=== PATIENT | male | born 1960 | race Caucasian/White ===

== ENCOUNTER → 2018-06-19 | Emergency (ER) | payer OTHER ==
[~2018-06-19] VITALS: Ht 175.3 cm; Wt 143.6 kg
[~2018-06-19] MED LIST: ACETAMINOPHEN-1 EAC1 PO; ALBUTEROL2.5 MG/0.5 INH; ALDACTONE25 MG PO; ALLOPURINOL 10100 M1 PO; AMARYL4 MG PO; ATORVASTATIN CA40 MG PO; ATROVENT HFA14 GM INH; AUGMENTIN 500-1 EACH PO; BUMETANIDE 1 MG1 M1 PO; CARDIZEM CD120 MG PO; CARDIZEM CD180 MG PO; CARDIZEM CD240 MG PO; CARTIA XT300 M1 PO; CARVEDILOL12.5 MG PO; CARVEDILOL25 MG PO; CATAPRES0.2 MG PO; CELEXA 20 MG TA20 M1 PO; CELEXA20 MG PO; CLONIDINE HCL0.2 M2 PO; CLONIDINE0.1 PO; COLACE100 MG PO; COREG25 MG PO; DICLOXACILLIN250 M2 PO; DIFLUCAN200 MG PO; DIGOXIN250 MCG PO; DOXYCYCLINE 10100 MG PO; DUONEB 2.5-0.5 M3 ML INH; ELIQUIS5 MG PO; FISH OIL 1,001000 M2 PO; FUROSEMIDE 80 M80 M1 PO; GLIPIZIDE 5 MG T5 MG PO; GLIPIZIDE ER5 MG PO; GLUCOPHAGE500 MG PO; INSPRA25 MG PO; IPRAT-ALBUT 0.5-3 ML INH; KLOR-CON 1010 MEQ PO; LANOXIN 0.120.125 M1 PO; LASIX 40 MG TAB40 M1 PO; LASIX 40 MG TAB40 M2 PO; LASIX 80 MG TAB80 MG PO; LEVALBUTER1.25 MG/0. INH; LEVAQUIN 500 M500 M1 PO; LEVAQUIN 500 M500 M2 PO; LEVEMIR SUBQ; LISINOPRIL2.5 MG PO; LISINOPRIL20 MG PO; METFORMIN HCL500 MG PO; MINOXIDIL10 MG PO; MINOXIDIL2.5 MG PO; MIRALAX17 GM PO; MIRALAX255 GM PO; MUCINEX TA600 MG/TA1 PO; NOHOMEMEDICATIONS; NORCO 5-325 TA1 EACH PO; NOVOLOG100 UNIT/1 SUBQ; OMEGA-31000 M1 PO; POTASSIUM20 PO; PRADAXA150 MG PO; PRAVACHOL40 MG PO; PREDNISONE 10 M10 MG PO; PREDNISONE 20 M20 M1 PO; PROTONIX40 M1 PO; PROTONIX40 M4 PO; SIMVASTATIN40 MG PO; SINGULAIR 10 MG10 M1; SINGULAIR 10 MG10 M1 PO; SORINE 80 MG TA80 M1 PO; SOTALOL80 MG; SPIRONOLACTONE25 M1 PO; VENTOLIN HFA 1818 GM INH; ZAROXOLYN 2.5M2.5 M1 PO; ZAROXOLYN 5MG TA5 M1; ZAROXOLYN 5MG TA5 MG PO; ZOCOR20 MG PO
[2018-06-19 15:18] LABS: HEMATOCRIT 36.3 % (42.0-52.0); HEMOGLOBIN 11.9 gm/dL (14.0-18.0); MCH 30.2 pg (26.0-34.0); MCHC 32.8 g/dL (28.0-37.0); MPV 9.1 fl. (7.2-11.1); NUCLEATED RBCS 0 /100WBC; PLATELET COUNT* 140 thou/uL (150-400); RBC 3.95 mil/uL (4.50-6.00); RDW-CV 14.5 % (10.5-14.5); WBC 8.3 thou/uL (4.0-11.0)
[2018-06-19 15:49] LABS: ABSOLUTE EOSINOPHILS 0.1 thou/uL (0.0-0.7); ABSOLUTE MONOCYTES 0.5 thou/uL (0.0-1.2); ABSOLUTE NEUTROPHILS 6.7 thou/uL (1.6-8.1); PLATELET ESTIMATE DECREASED
[2018-06-19 16:19] VITALS: BP 124/69
== END ==
LOC: M.ERS 12:48
PROVIDERS: Nurse Practitioner Family
DX: S81.811A Laceration without foreign body, right lower leg, initial encounter (principal); E11.9 Type 2 diabetes mellitus without complications; G47.30 Sleep apnea, unspecified; I48.91 Unspecified atrial fibrillation; I50.9 Heart failure, unspecified; Z77.22 Contact with and (suspected) exposure to environmental tobacco smoke (acute) (chronic); Z88.1 Allergy status to other antibiotic agents; Z79.4 Long term (current) use of insulin; W22.8XXA Striking against or struck by other objects, initial encounter; Y93.89 Activity, other specified; Y92.89 Other specified places as the place of occurrence of the external cause; Y99.8 Other external cause status

== ENCOUNTER 2018-07-04 20:50 | Inpatient (IN) | payer OTHER ==
[~2018-07-04] VITALS: Ht 175.3 cm; Wt 148.8 kg
[~2018-07-04 20:50] MED LIST changes: -AMARYL4 MG PO; -ATORVASTATIN CA40 MG PO; -AUGMENTIN 500-1 EACH PO; -DICLOXACILLIN250 M2 PO; -DIFLUCAN200 MG PO; -DIGOXIN250 MCG PO; -INSPRA25 MG PO; -IPRAT-ALBUT 0.5-3 ML INH; -PROTONIX40 M1 PO; -SPIRONOLACTONE25 M1 PO
[2018-07-04 20:59] VITALS: BP 148/91
[2018-07-04] MEDS ORDERED: ATORVASTATIN CA40 MG PO (21:08)
[2018-07-04] MEDS ORDERED: AMARYL4 MG PO (21:09)
[2018-07-04] MEDS ORDERED: PREDNISONE 10 M10 MG PO (21:09)
[2018-07-04] MEDS ORDERED: SPIRONOLACTONE25 M1 PO (21:10)
[2018-07-04] MEDS ORDERED: LASIX 40 MG TAB40 M2 PO (21:10)
[2018-07-04] MEDS ORDERED: PROTONIX40 M1 PO (21:10)
[2018-07-04] MEDS ORDERED: CARDIZEM CD120 MG PO (21:11)
[2018-07-04 22:17] LABS: ABSOLUTE EOSINOPHILS 0.1 thou/uL (0.0-0.7); ABSOLUTE LYMPHOCYTES 0.8 thou/uL (0.8-5.3); ABSOLUTE MONOCYTES 0.7 thou/uL (0.0-1.2); ABSOLUTE NEUTROPHILS 5.4 thou/uL (1.6-8.1); BASOPHILS 0.4 %; EOSINOPHILS 1.2 %; HEMATOCRIT 30.9 % (42.0-52.0); HEMOGLOBIN 10.3 gm/dL (14.0-18.0); LYMPHOCYTES 11.4 %; MCH 30.5 pg (26.0-34.0); MCHC 33.2 g/dL (28.0-37.0); MCV 91.8 fL (80.0-100.0); MONOCYTES 9.4 %; MPV 8.1 fl. (7.2-11.1); NUCLEATED RBCS 0 /100WBC; PLATELET COUNT* 181 thou/uL (150-400); POLYS 77.6 %; RBC 3.37 mil/uL (4.50-6.00); RDW-CV 15.2 % (10.5-14.5); WBC 6.9 thou/uL (4.0-11.0)
[2018-07-04 22:24] LABS: ANION GAP < 0 mmol/L (7-16); BUN 29 mg/dL (7-18); CALCIUM 9.2 mg/dL (8.5-10.1); CHLORIDE 101 mmol/L (98-107); CO2 39 mmol/L (21-32); CREATININE 1.8 mg/dL (0.6-1.3); GLUCOSE 139 mg/dL (70-99); SODIUM 139 mmol/L (136-145)
[2018-07-04 22:25] LABS: ALBUMIN 3.1 g/dL (3.4-5.0); ALKALINE PHOSPHATASE 80 U/L (46-116); SGOT 18 U/L (15-37); SGPT 22 U/L (30-65); TOTAL BILIRUBIN 0.4 mg/dL (<0.1-1.0)
[2018-07-05] VITALS (7 sets, daily range): BP systolic 118–158; BP diastolic 66–90
[2018-07-06] VITALS: BP 120/69
[2018-07-06 05:27] LABS: HEMATOCRIT 30.6 % (42.0-52.0); MCH 30.2 pg (26.0-34.0); MCHC 32.8 g/dL (28.0-37.0); MCV 92.3 fL (80.0-100.0); MPV 8.6 fl. (7.2-11.1); RBC 3.31 mil/uL (4.50-6.00); RDW-CV 14.9 % (10.5-14.5); WBC 6.9 thou/uL (4.0-11.0)
[2018-07-06 05:43] LABS: CALCIUM 8.9 mg/dL (8.5-10.1); CREATININE 1.4 mg/dL (0.6-1.3); MAGNESIUM 2.1 mg/dL (1.8-2.4); POTASSIUM 4.3 mmol/L (3.5-5.1)
[2018-07-06 07:30] VITALS: BP 136/92
--- NOTE | 2018-07-06 07:53 | CON ---
[address] [address] CONSULTATION Name: KARL LAO SR Room: [address] IN M.R.#: [id number] Admission: 07/04/18 Attend Phys: Stephen Gomez MD Discharge: Date of : 56 Report #: [id number] THIS REPORT FOR: //name// CC: Abelardo Gomez DATE OF SERVICE: 07/05/2018 INFECTIOUS DISEASE CONSULTATION REASON FOR EVALUATION: Right lower extremity infected hematoma, site of fairly significant trauma. HISTORY OF PRESENT ILLNESS: Chart reviewed, the patient examined. This is a 57-year-old with diabetes mellitus who sustained injury as a result of a sawhorse falling on his leg roughly 2 weeks ago. He was evaluated. At that point, he had a, described as a blood blister. Eventually, it denuded and became quite inflamed. He has had moderate pain since that time, with bloody drainage from the coagulated hematoma. He denies significant pulmonary or gastrointestinal-related complaints. Blood sugars have been mildly elevated relative to his baseline. He was seen in the Emergency Room, subsequently admitted and placed on empiric therapy with combination therapy with piperacillin and vancomycin. ALLERGIES: ALLERGIC TO ADHESIVE TAPE. CURRENT MEDICATIONS: Include atorvastatin, montelukast, insulin, vancomycin, ipratropium and albuterol inhaler, p.r.n. analgesics, antiemetics, prednisone, glimepiride, lisinopril, allopurinol, apixaban, citalopram and Zosyn. PAST MEDICAL HISTORY: Diabetes mellitus, hypertension, obstructive sleep apnea, hypercholesterolemia, cardiomyopathy with history of congestive heart failure and atrial fibrillation. SOCIAL HISTORY: Former smoker. No ethanol. FAMILY HISTORY: Noncontributory. REVIEW OF SYSTEMS: As above. PHYSICAL EXAMINATION: GENERAL: He appears mildly distressed. He is not encephalopathic, reasonably nourished. VITAL SIGNS: Temperature 97.7, pulse 92, respirations 16 and blood pressure 118/70. SKIN: Warm, [place] [address] CONSULTATION Name: KARL LAO SR Room: [address]#: [id number] Admission: 07/04/18 Attend Phys: Stephen Gomez MD Discharge: Date of : 56 Report #: [id number] HEENT: Otherwise, unremarkable. NECK: Supple. LUNGS: Diminished breath sounds. ABDOMEN: Obese. EXTREMITIES: Right lower extremity had marked inflammatory changes. There is an area of denuded ulcer, site of extensive hematoma that has persistent coagulum. It is quite tender, particularly proximally. It is not suggestive of significant odor at this point. GENITOURINARY: Deferred. RECTAL: Deferred. LABORATORY DATA: CBC: White count of 6.9, H and H 10.3 and 30.9 and platelets of 181,000. Electrolytes: Sodium 139, potassium 5.0, chloride 101, bicarbonate is 39, anion gap of less than 0 and BUN and creatinine 29 and 1.8. LFTs unremarkable. Albumin of 3.1. Total protein 7.0. Estimated GFR of 39. Lactic acid of 0.6. CT of the abdomen and pelvis showed large posterior skin and subcutaneous ulcer with large posterior calf subcutaneous soft tissue density mass, suggestive of a hematoma, again exclude secondary complication of infection. Blood cultures are sterile thus far. ASSESSMENT AND PLAN: Large right leg hematoma with breakdown. I think it is reasonable to continue empiric antimicrobial therapy and noted plans for surgical evaluation, I think, debulking and removing all the devitalized tissue as well as the coagulum as appropriate. He will be left with a large defect and will need wound care. If compression plays a role, he may be a candidate for a wound VAC. <ELECTRONICALLY SIGNED> By: Richar Reveles MD 07/06/18 0753 1210 [id number] Reveles MD /nt
[2018-07-06 20:00] VITALS: BP 111/73
[2018-07-06 23:09] LABS: GLYCOHEMOGLOBIN (HGB A1C) 7.5 % (4.8-5.6)
[2018-07-07] VITALS: BP 100/66
[2018-07-07 05:30] LABS: HEMATOCRIT 26.4 % (42.0-52.0); HEMOGLOBIN 8.8 gm/dL (14.0-18.0); MCH 30.5 pg (26.0-34.0); MCHC 33.2 g/dL (28.0-37.0); MCV 91.8 fL (80.0-100.0); MPV 8.2 fl. (7.2-11.1); RBC 2.88 mil/uL (4.50-6.00); RDW-CV 14.8 % (10.5-14.5)
[2018-07-07 05:53] LABS: CALCIUM 8.3 mg/dL (8.5-10.1); CREATININE 1.6 mg/dL (0.6-1.3); MAGNESIUM 1.9 mg/dL (1.8-2.4); POTASSIUM 4.6 mmol/L (3.5-5.1)
[2018-07-07 08:32] VITALS: BP 132/64
[2018-07-07 12:00] VITALS: BP 105/69
[2018-07-07 16:00] VITALS: BP 103/67
[2018-07-07 20:00] VITALS: BP 115/52
[2018-07-08] VITALS: BP 129/79
[2018-07-08 04:00] VITALS: BP 156/82
[2018-07-08 05:01] LABS: HEMATOCRIT 27.6 % (42.0-52.0); HEMOGLOBIN 9.2 gm/dL (14.0-18.0); MCH 30.4 pg (26.0-34.0); MCHC 33.1 g/dL (28.0-37.0); MCV 91.9 fL (80.0-100.0); MPV 8.6 fl. (7.2-11.1); RBC 3.01 mil/uL (4.50-6.00)
[2018-07-08 05:19] LABS: CALCIUM 8.7 mg/dL (8.5-10.1); CREATININE 1.6 mg/dL (0.6-1.3); POTASSIUM 4.6 mmol/L (3.5-5.1)
[2018-07-08 08:15] VITALS: BP 147/93
[2018-07-08 15:38] VITALS: BP 109/62
[2018-07-08 20:00] VITALS: BP 111/74
[2018-07-09 05:18] LABS: HEMATOCRIT 25.4 % (42.0-52.0); HEMOGLOBIN 8.5 gm/dL (14.0-18.0); MCH 30.4 pg (26.0-34.0); MCHC 33.4 g/dL (28.0-37.0); MCV 91.1 fL (80.0-100.0); MPV 8.7 fl. (7.2-11.1); RBC 2.79 mil/uL (4.50-6.00); RDW-CV 14.9 % (10.5-14.5); WBC 6.7 thou/uL (4.0-11.0)
[2018-07-09 05:32] LABS: CALCIUM 8.8 mg/dL (8.5-10.1); CREATININE 1.6 mg/dL (0.6-1.3); POTASSIUM 4.1 mmol/L (3.5-5.1)
[2018-07-09 09:54] VITALS: BP 140/78
[2018-07-09 15:34] VITALS: BP 99/72
[2018-07-09 20:30] VITALS: BP 114/68
[2018-07-10 00:39] VITALS: BP 127/70
[2018-07-10 08:00] VITALS: BP 120/75
[2018-07-10 15:35] VITALS: BP 120/75
[2018-07-10 16:00] VITALS: BP 124/52
[2018-07-10 21:00] VITALS: BP 130/87
[2018-07-11 09:41] VITALS: BP 127/81
[2018-07-11 16:25] VITALS: BP 104/65
[2018-07-11 20:00] VITALS: BP 119/85
[2018-07-12 08:15] VITALS: BP 129/84
[2018-07-12] MEDS ORDERED: DICLOXACILLIN250 M2 PO (09:26)
[2018-07-12 16:00] VITALS: BP 142/80
[2018-07-12 18:40] VITALS: BP 120/75
--- NOTE | 2018-07-14 12:50 | CON ---
[address] [address] CONSULTATION Name: KARL LAO SR Room: [address] IN M.R.#: [id number] Admission: 07/04/18 Attend Phys: Stephen Gomez MD Discharge: 07/12/18 Date of : 56 Report #: [id number] THIS REPORT FOR: //name// CC: Abelardo Gomez DATE OF SERVICE: 07/08/2018 HISTORY OF PRESENT ILLNESS: Postoperative day #2 for incision and drainage, right posterior leg wound with hematoma. He is on parenteral vancomycin and Zosyn with good tolerance. The admission swab culture growing skin irasema, surgical cultures are pending. He denies right leg pain or fevers/chills. He did have nausea last night and vomited roughly 6 times. He has decreased appetite today. He is sitting up in a reclining chair comfortably. LABORATORY DATA: WBC 9.0, RBC 3.01, hemoglobin 9.2, hematocrit 27.6, platelets 174. BUN 27, creatinine 1.6, glucose 143, albumin was 3.1. PHYSICAL EXAMINATION: The right leg bandage was removed and there was no active bleeding. There was some soft coagulated blood to the wound bed. The inflammation is decreased with no bright red erythema as there was a prior surgery. The inflammations are dark purplish blue color. The wound margins are minimally tender to palpation. No signs of acute vascular embarrassment. No popliteal adenopathy. He can flex and extend the right ankle well. IMPRESSION: Wound, right posterior calf, status post hematoma evacuation. Type 2 diabetes mellitus with peripheral neuropathy, venous insufficiency. PLAN: The wound was cleansed and dressed with a silicone nonadherent fenestrated dressing and covered with ABDs, Kerlix and Sinan bandage. I discussed postoperative recovery, including possible placement to a prison facility for wound care, IV antibiotics and physical therapy. I will see the patient tomorrow for dressing change. <ELECTRONICALLY SIGNED> By: Jayv Reeder DPM 07/14/18 1250 1308 0151Dlorna Reeder DPM /nt
--- NOTE | 2018-07-14 12:50 | CON ---
[address] [address] CONSULTATION Name: KARL LAO SR Room: [address] IN .R.#: [id number] Admission: 07/04/18 Attend Phys: Stephen Gomez MD Discharge: 07/12/18 Date of : 56 Report #: [id number] THIS REPORT FOR: //name// CC: Abelrado Campos DATE OF SERVICE: 07/12/2018 CHIEF COMPLAINT: Status post incision and drainage, right leg with hematoma evacuation. Surgical tissue cultures grew oxacillin-sensitive coagulase-negative Staphylococcus. Dr. Reveles placed him on oral dicloxacillin 500 mg q.i.d. The patient is scheduled for discharge today. He denies fevers, chills, nausea or malaise. He only has pain to the area with direct palpation. He has improved appetite. There are no new labs for review. PHYSICAL EXAMINATION: Decreased inflammation to the troy-wound. There is a stable hematoma to the wound bed, with no active bleeding. No underlying fluctuance or crepitation. Negative Homans to either leg. No popliteal adenopathy to the right lower extremity. No signs of acute vascular embarrassment. IMPRESSION: Deep soft tissue infection, right posterior leg wound, status post surgical debridement. PLAN: I removed some hematoma today with forceps and scissors and cleansed the remaining wound and hematoma. I did not evacuate the entire wound as I did not want to cause active bleeding on the day of discharge. The wound was covered with Aquacel Ag, ABDs, Kerlix gauze and Sinan wrap. I explained to the patient that I will slowly debride hematoma during his weekly wound care visits. I will see him in 2 days at [facility]. <ELECTRONICALLY SIGNED> By: Javy Reeder DPM 07/14/18 1250 1253 [id number] Reeder DPM /nt
--- NOTE | 2018-07-14 12:50 | CON ---
[address] [address] CONSULTATION Name: KARL LAO SR Room: [address] IN M.R.#: [id number] Admission: 07/04/18 Attend Phys: Stephen Gomez MD Discharge: 07/12/18 Date of : 56 Report #: [id number] THIS REPORT FOR: //name// CC: Abelardo Gomez DATE OF SERVICE: 07/10/2018 CHIEF COMPLAINT: Status post incision and drainage, right leg for deep tissue infection/hematoma. He is on parenteral vancomycin with good tolerance. He denies constitutional symptoms, has good appetite. Denies leg pain except with direct palpation. Preoperative cultures grew coagulase-negative Staphylococcus, surgical cultures pending. He has PICC line placed to left arm. He ambulates in a surgical shoe using a walker. There are no new labs for review. PHYSICAL EXAMINATION: Decreased inflammation to the periwound with no signs of acute vascular embarrassment. There is no active bleeding with soft hematoma to the wound bed. There is no underlying fluctuance or crepitation. No popliteal adenopathy, negative Homans' or Barker sign to both legs. He can flex and extend the right ankle. He has mild tenderness with palpation to the wound margins. Overall, clinical picture improved since yesterday. IMPRESSION: Status post incision and drainage, right leg with hematoma evacuation, type 2 diabetes mellitus. PLAN: The wound was cleansed, patted dry and redressed with fenestrated silicone nonadherent dressing, covered with ABD, Kerlix and Sinan bandage. The patient to minimize ambulation and elevate extremity. Maximize glycemic control and nutrition. I discussed the importance of protein intake. He will follow up as outpatient at [facility] with Dr. Reveles. I will see him daily as long as he is here in the hospital. <ELECTRONICALLY SIGNED> By: Javy Reeder DPM 07/14/18 1250 1118 1935Javy Reeder DPM /nt
--- NOTE | 2018-07-14 12:50 | CON ---
[address] [address] CONSULTATION Name: KARL LAO SR Room: [address] IN M.R.#: [id number] Admission: 07/04/18 Attend Phys: Stephen Gomez MD Discharge: 07/12/18 Date of : 56 Report #: [id number] THIS REPORT FOR: //name// CC: Abelardo Gomez REASON FOR CONSULTATION: Infected hematoma to right leg, complicated by type 2 diabetes mellitus. CHIEF COMPLAINT: The patient is a 57-year-old male admitted for worsening right lower extremity wound due to traumatic injury 2 weeks ago. He relates as a saw-horse fell over and cut his leg. He subsequently developed increased redness, pain and swelling to the area. He has type 2 diabetes mellitus and CKD 2. He denies fevers, chills, nausea or malaise. He relates some peripheral neuropathy with decreased sensation, but currently has rjqd-[id number] pain to the area, rated 5/10 with palpation. I reviewed his past medical history and the history and physical examination. He is on parenteral vancomycin 1 gram IV q. 12 hours. LABORATORY DATA: WBC 6.9, RBC 3.37, hemoglobin 10.3, hematocrit 30.9, platelets 181, BUN 29, creatinine 1.8, glucose 139. PHYSICAL EXAMINATION: There is a large wound to the right posterior medial calf, roughly 6 x 5 inches. The wound bed has coagulated black hematoma with some visible areas of underlying granulation. The periwound is very inflamed and swollen with erythema and pain to palpation. There is no fluctuance or crepitation. No other wounds noted. IMPRESSION: Wound to right posterior medial calf with deep tissue infection, complicated by type 2 diabetes mellitus. PLAN: I will take him to the OR tonight for incision and drainage with wound debridement. I discussed with Dr. Asa Reveles who is agreeable. I cleansed the wound and wrapped it with ABDs and Kerlix and Sinan. I discussed surgical procedure with the patient and explained that I will obtain wound cultures during the procedure. <ELECTRONICALLY SIGNED> By: Javy Reeder DPM 07/14/18 1250 1238 0033Dlorna Reeder DPM /nt
--- NOTE | 2018-07-14 12:50 | CON ---
[address] [address] CONSULTATION Name: KARL LAO SR Room: [address] IN .R.#: [id number] Admission: 07/04/18 Attend Phys: Stephen Gomez MD Discharge: 07/12/18 Date of : 56 Report #: [id number] THIS REPORT FOR: //name// CC: Abelardo Gomez DATE OF SERVICE: 07/07/2018 CHIEF COMPLAINT: Status post incision and drainage with hematoma evacuation of the right leg x 1 day. HISTORY OF PRESENT ILLNESS: He relates mild discomfort. He has physical therapy today, partial weightbearing with a walker. He has good appetite, he has been afebrile. Surgical cultures pending, preoperative cultures show gram-positive cocci. Blood cultures negative x 2. He is on parenteral vancomycin and Zosyn, with good tolerance. I spoke with Patria Hou, the wound nurse, and she will place VeraFlo wound VAC this afternoon. LABORATORY DATA: WBC 8.0, RBC 2.88, hemoglobin 8.8, hematocrit 26.4 and platelets 162,000. BUN 28, creatinine 1.6 and glucose 101. PHYSICAL EXAMINATION: VITAL SIGNS: Temperature 97.5, pulse 70, respirations 17 and blood pressure 132/64. EXTREMITIES: Dressing is intact; it was changed this morning. There is some serosanguineous drainage on it. He is able to flex and extend the right ankle and wiggle the toes. I did not remove the bandage since he is currently eating lunch, and the wound vacuum will be placed later this afternoon. IMPRESSION: Status post incision and drainage with hematoma evacuation x 1 day. PLAN: VeraFlo wound vacuum to be placed today by wound nurse. Partial weightbearing with the walker with physical therapy, rest, elevate the extremity and maximize glycemic control and nutrition. I will follow up with the patient tomorrow. <ELECTRONICALLY SIGNED> By: Javy Reeder DPM 07/14/18 1250 1256 0129Javy Reeder DPM /nt
--- NOTE | 2018-07-14 12:50 | OP ---
[address] [address] OPERATIVE REPORT Name: KARL LAO SR Room: [address] IN .R.#: [id number] Admission: 07/04/18 Attend Phys: Stephen Gomez MD Discharge: 07/12/18 Date of : 56 Report #: [id number] THIS REPORT FOR: //name// CC: Abelardo Gomez DATE OF SERVICE: 07/06/2018 SURGEON: Javy Reeder DPM PREOPERATIVE DIAGNOSIS: Deep tissue infection with hematoma, right leg. POSTOPERATIVE DIAGNOSIS: Deep tissue infection with hematoma, right leg. PROCEDURE: 1. Incision and drainage, right leg wound. 2. Soft tissue debridement, right leg. ANESTHESIA: General LMA. INJECTABLES: 30 mL of a 1:1 mixture of 0.5% Marcaine plain and 1% lidocaine plain TOURNIQUET: None. ESTIMATED BLOOD LOSS: Roughly 100 mL. CULTURES: Soft tissue, right leg, aerobic and anaerobic. SPECIMENS: None. COMPLICATIONS: None. DESCRIPTION OF PROCEDURE: The patient was brought to the OR and placed on the table supine with induction of general LMA anesthesia. A local anesthetic block was given proximal to the surgical site. The extremity was prepped and draped aseptically and a timeout was performed to confirm patient identity and surgical site. A large bone curette was used to evacuate clotted hematoma from the wound bed. I curettaged hematoma from the undermined edges down to the fascia covering the posterior calf muscles. No major arteries or nerves were encountered. All bleeding was stopped with direct pressure, no electrocautery was utilized. The wound was lavaged. I took a dairy supplies sales representative sample of soft tissue from the posterior calf and sent for aerobic and anaerobic wound culture. I lavaged the wound with 1 liter of sterile saline with 50,000 units of bacitracin irrigant. The leg was cleaned and dried. The wound was then packed with 2 pieces of 4/5 inch Aquacel Ag and covered with ABDs, Kerlix, [place] [address] OPERATIVE REPORT Name: KARL LAO Room: [address] IN M.R.#: [id number] Admission: 07/04/18 Attend Phys: Stephne Gomez MD Discharge: 07/12/18 Date of : 56 Report #: [id number] 6-inch Sinan wraps. The patient left the OR alert and oriented with no pain or complications noted. <ELECTRONICALLY SIGNED> By: Javy Reeder DPM 07/14/18 1250 1624 1718Javy Reeder DPM /jatin
--- NOTE | 2018-07-14 12:50 | CON ---
[address] [address] CONSULTATION Name: KARL LAO SR Room: [address] IN .R.#: [id number] Admission: 07/04/18 Attend Phys: Stephen Gomez MD Discharge: 07/12/18 Date of : 56 Report #: [id number] THIS REPORT FOR: //name// CC: Abelardo Gomez DATE OF SERVICE: 07/09/2018 CHIEF COMPLAINT: Status post incision and drainage with hematoma evacuation of right posterior calf wound. Surgical cultures growing coagulase-negative Staphylococcus. Preoperative cultures grew mixed skin irasema. He is on parenteral vancomycin with good tolerance. He denies fevers, chills or malaise. He has improved appetite today. He denies right leg pain. He is ambulating in a surgical shoe with a walker under physical therapy supervision. Denies chest pain or shortness of breath. LABORATORY DATA: WBC 6.7, RBC 2.79, hemoglobin 8.5, hematocrit 25.4, platelets 173. BUN 26, creatinine 1.6, glucose 118. PHYSICAL EXAMINATION: The wound has an intact soft hematoma with no active bleeding. The periwound inflammation is significantly decreased from yesterday. The area is nontender to the touch. There is no pallor, cyanosis or signs of acute vascular embarrassment. No right popliteal adenopathy. Negative Homans' or Barker sign in either lower extremity. IMPRESSION: Postoperative wound to right posterior calf with deep tissue infection. PLAN: The wound was cleansed and redressed with a fenestrated silicone nonadherent dressing followed by ABDs, Kerlix, and Sinan bandage. Minimize ambulation, elevate extremity, maximize glycemic control and nutrition. I will follow the patient tomorrow. <ELECTRONICALLY SIGNED> By: Javy Reeder DPM 07/14/18 1250 1702 0319Javy Reeder DPM /nt
== END 2018-07-12 18:40 | disposition home or self-care (01) | DRG 571 ==
LOC: M.ERS 20:50 → M.2W 23:51 → M.TBA-ER 23:51 → M.2W 07-05 01:23 → M.ORTHSURG 07-08 16:38
PROVIDERS: Internal Medicine; Nurse Practitioner Family
PROC: 0JBN0ZZ Excision of Right Lower Leg Subcutaneous Tissue and Fascia, Open Approach (ICD-10-PCS; principal; 2018-07-06)
PROC: 0J9N0ZZ Drainage of Right Lower Leg Subcutaneous Tissue and Fascia, Open Approach (ICD-10-PCS; principal; 2018-07-06)
DX: S80.11XA Contusion of right lower leg, initial encounter (principal); E44.1 Mild protein-calorie malnutrition; I42.9 Cardiomyopathy, unspecified; I13.0 Hypertensive heart and chronic kidney disease with heart failure and stage 1 through stage 4 chronic kidney disease, or unspecified chronic kidney disease; I50.32 Chronic diastolic (congestive) heart failure; Z68.42 Body mass index [BMI] 45.0-49.9, adult; L03.115 Cellulitis of right lower limb; I96 Gangrene, not elsewhere classified; E78.00 Pure hypercholesterolemia, unspecified; I48.91 Unspecified atrial fibrillation; Z77.22 Contact with and (suspected) exposure to environmental tobacco smoke (acute) (chronic); G47.33 Obstructive sleep apnea (adult) (pediatric); E11.42 Type 2 diabetes mellitus with diabetic polyneuropathy; E11.22 Type 2 diabetes mellitus with diabetic chronic kidney disease; I87.2 Venous insufficiency (chronic) (peripheral); K21.9 Gastro-esophageal reflux disease without esophagitis; J44.9 Chronic obstructive pulmonary disease, unspecified; F32.9 Major depressive disorder, single episode, unspecified; M10.9 Gout, unspecified; E66.01 Morbid (severe) obesity due to excess calories; N18.3 Chronic kidney disease, stage 3 (moderate); W55.12XA Struck by horse, initial encounter; Z79.899 Other long term (current) drug therapy; Z79.4 Long term (current) use of insulin; Z91.041 Radiographic dye allergy status; Z82.49 Family history of ischemic heart disease and other diseases of the circulatory system; Y93.89 Activity, other specified; Y92.89 Other specified places as the place of occurrence of the external cause; Y99.8 Other external cause status

== ENCOUNTER → 2018-07-14 | Outpatient (CLI) | payer OTHER ==
[~2018-07-14] MED LIST changes: +AMARYL4 MG PO; +ATORVASTATIN CA40 MG PO; +AUGMENTIN 500-1 EACH PO; +DICLOXACILLIN250 M2 PO; +DIFLUCAN200 MG PO; +DIGOXIN250 MCG PO; +INSPRA25 MG PO; +IPRAT-ALBUT 0.5-3 ML INH; +PROTONIX40 M1 PO; +SPIRONOLACTONE25 M1 PO
== END ==
LOC: M.WC 13:32
DX: E11.622 Type 2 diabetes mellitus with other skin ulcer (principal); L97.211 Non-pressure chronic ulcer of right calf limited to breakdown of skin; E11.40 Type 2 diabetes mellitus with diabetic neuropathy, unspecified; E78.00 Pure hypercholesterolemia, unspecified; I11.0 Hypertensive heart disease with heart failure; I50.9 Heart failure, unspecified; I48.91 Unspecified atrial fibrillation; G47.30 Sleep apnea, unspecified; Z87.891 Personal history of nicotine dependence; Z79.4 Long term (current) use of insulin

== ENCOUNTER → 2018-07-21 | Outpatient (CLI) | payer OTHER | LOC: M.ULTRA 05:42 → M.WC 14:00 | DX: E11.622 Type 2 diabetes mellitus with other skin ulcer (principal); L97.812 Non-pressure chronic ulcer of other part of right lower leg with fat layer exposed; L89.893 Pressure ulcer of other site, stage 3; E11.40 Type 2 diabetes mellitus with diabetic neuropathy, unspecified; E78.00 Pure hypercholesterolemia, unspecified; G47.30 Sleep apnea, unspecified; I50.9 Heart failure, unspecified; I11.0 Hypertensive heart disease with heart failure; I48.91 Unspecified atrial fibrillation; Z79.4 Long term (current) use of insulin; Z87.891 Personal history of nicotine dependence ==

== ENCOUNTER → 2018-07-28 | Outpatient (CLI) | payer OTHER | LOC: M.WC 04:28 | DX: L03.115 Cellulitis of right lower limb (principal); E11.40 Type 2 diabetes mellitus with diabetic neuropathy, unspecified; E78.00 Pure hypercholesterolemia, unspecified; G47.30 Sleep apnea, unspecified; I11.0 Hypertensive heart disease with heart failure; I50.9 Heart failure, unspecified; I48.91 Unspecified atrial fibrillation; Z79.4 Long term (current) use of insulin; Z87.891 Personal history of nicotine dependence ==

== ENCOUNTER 2018-07-29 14:22 | Inpatient (IN) | payer OTHER ==
[~2018-07-29] VITALS: Ht 175.3 cm; Wt 147.9 kg
--- NOTE | ~2018-07-29 | PROC ---
[address] [address] PROCEDURE REPORT Name: KARL LAO Room: [address] IN M.R.#: [id number] Admission: 07/29/18 Attend Phys: Negrita Sherman MD Discharge: 08/04/18 Date of : 56 Report #: [id number] THIS REPORT FOR: //name// For GI report, please see the Provation report in Perceptive 7 content. By: [id number] Records Staff MYLA /DUKE
--- NOTE | ~2018-07-29 | CON ---
[address] [address] CONSULTATION Name: KARL LAO SR Room: [address] IN .R.#: [id number] Admission: 07/29/18 Attend Phys: Negrita Sherman MD Discharge: Date of : 56 Report #: [id number] THIS REPORT FOR: //name// CC: Abelardo Sherman DATE OF SERVICE: 07/30/2018 REASON FOR CONSULTATION: Anemia. HISTORY OF PRESENT ILLNESS: This is a 57-year-old morbidly obese male with multiple medical problems including COPD, oxygen dependent on 3 liters of nasal cannula at home. The patient also has CHF, obstructive sleep apnea and had presented to hospital with AFib and RVR after he was seen in the Cardiology Clinic. Since hospitalization, the patient was placed on Cardizem drip and his rate is regular. He was found to be anemic as his hemoglobin is 7.9. His baseline usually is around 10. The patient also found to have iron-deficiency anemia with iron saturation in single digit. He denies any hematochezia, melena or hematemesis. He complains of abdominal distention and pain due to the same. PAST MEDICAL HISTORY: Significant for history of COPD, AFib with RVR, diabetes mellitus, chronic kidney disease, anemia, obstructive sleep apnea and GERD. ALLERGIES: No known drug allergies. THE PATIENT IS ALLERGIC TO ADHESIVE TAPE. MEDICATIONS: Please refer to MAR. PHYSICAL EXAMINATION: VITAL SIGNS: Reveals normal vitals. LUNGS: Clear. CARDIOVASCULAR: Regular rate. ABDOMEN: Large, tight. Bowel sounds are positive. LABORATORY DATA: Labs reveal sodium 140, potassium 4.0, BUN is 26, creatinine 1.6 and glucose is 77. AST is 17, ALT 21, alkaline phosphatase 80 and magnesium is 1.6. Uric acid 9.1. Iron saturation is 7 and TIBC is 334. Serum iron is 24. INR is 1.1 with WBC of 6.1, hemoglobin is 7.9 down from baseline of 10 and platelets are 163. RADIOLOGICAL DATA: Portable chest x-ray was obtained, which showed generalized cardiomegaly with mild chronic pulmonary congestion. ASSESSMENT AND PLAN: The patient with chronic anemia and acute exacerbation of anemia. He has never had endoscopic evaluation [place] [address] CONSULTATION Name: KARL LAO Room: [address]#: [id number] Admission: 07/29/18 Attend Phys: Negrita Sherman MD Discharge: Date of : 56 Report #: [id number] gastroesophageal reflux disease symptoms. We will perform upper and lower endoscopy but will get Cardiology clearance. The nurse suggests that Cardiology, Dr. Stanley has cleared the patient for upper and lower endoscopy. We will make further recommendation when endoscopic evaluation is complete. Meanwhile, continue to monitor hemoglobin and hold Eliquis until procedure is performed. By: [id number] White MD /jatin
[~2018-07-29 14:22] MED LIST changes: -AUGMENTIN 500-1 EACH PO; -DIFLUCAN200 MG PO; -DIGOXIN250 MCG PO; -INSPRA25 MG PO; -IPRAT-ALBUT 0.5-3 ML INH
[2018-07-29 14:25] VITALS: BP 135/100
[2018-07-29 14:33] LABS: HEMATOCRIT 28.1 % (42.0-52.0); MCH 28.5 pg (26.0-34.0); MCHC 31.9 g/dL (28.0-37.0); MCV 89.4 fL (80.0-100.0); MPV 8.4 fl. (7.2-11.1); NUCLEATED RBCS 0 /100WBC; PLATELET COUNT* 201 thou/uL (150-400); RBC 3.14 mil/uL (4.50-6.00); RDW-CV 16.6 % (10.5-14.5); WBC 8.8 thou/uL (4.0-11.0)
[2018-07-29 14:50] LABS: INR 1.1; PROTIME 10.9 Seconds (9.20-11.50)
[2018-07-29 15:04] LABS: ALBUMIN 3.4 g/dL (3.4-5.0); ALKALINE PHOSPHATASE 80 U/L (46-116); ANION GAP 3 mmol/L (7-16); BUN 26 mg/dL (7-18); CHLORIDE 97 mmol/L (98-107); CO2 37 mmol/L (21-32); CREATININE 1.6 mg/dL (0.6-1.3); GLUCOSE 224 mg/dL (70-99); LIPASE 267 U/L (73-393); MAGNESIUM 1.7 mg/dL (1.8-2.4); NT-PRO BRAIN NAT PEPTIDE 1653 pg/mL (<300); SGOT 17 U/L (15-37); SGPT 21 U/L (30-65); SODIUM 137 mmol/L (136-145); TOTAL BILIRUBIN 0.3 mg/dL (<0.1-1.0); TOTAL PROTEIN 7.5 g/dL (6.4-8.2); TROPONIN-I LEVEL <0.06 ng/mL (<0.06)
[2018-07-29 15:26] LABS: ABSOLUTE EOSINOPHILS 0.3 thou/uL (0.0-0.7); ABSOLUTE LYMPHOCYTES 0.4 thou/uL (0.8-5.3); ABSOLUTE MONOCYTES 0.5 thou/uL (0.0-1.2); ABSOLUTE NEUTROPHILS 7.7 thou/uL (1.6-8.1)
[2018-07-29 15:27] LABS: PLATELET ESTIMATE ADEQUATE
[2018-07-29 15:28] LABS: ANISOCYTOSIS Occasional; POLYCHROMASIA Occasional
--- NOTE | 2018-07-29 16:41 | EKG ---
[place] [address] ELECTROCARDIOGRAM REPORT Name: KARL LAO SR Room: [place] [address] ADM IN .R.#: [id number] Admission: 07/29/18 Attend Phys: Negrita Sherman MD Discharge: Date of : 56 Report #: [id number] THIS REPORT FOR: //name// [facility] ED Test Date: 2018-07-29 Test Time: 14:29:14 Pat Name: KARL LAO Department: Room: [facility] Gender: M Corporate Treasury Analyst: TP : 1960 Requested By: Ector Mcintyre Order Number: [id number] MD: Aron Ivan Measurements Intervals [place] Rate: 108 P: MO: QRS: 115 QRSD: 112 T: 45 QT: 379 QTc: 508 Interpretive Statements Atrial fibrillation Borderline intraventricular conduction delay Low voltage, extremity leads Borderline repolarization abnormality Prolonged QT interval Baseline wander in lead(s) V1 Compared to ECG 10/31/2016 14:30:37 Low QRS voltage now present Right-axis deviation no longer present Myocardial infarct finding no longer present Electronically Signed On 07-29-2018 16:41:22 CDT by Aron Ivan [email or web address] <ELECTRONICALLY SIGNED> By: Aron Ivan MD, FACC 07/29/18 1641 1429 1429 Aron Ivan MD, FACC /EPI
[2018-07-29 17:34] VITALS: BP 143/90
[2018-07-29 17:45] VITALS: BP 131/100
[2018-07-29 20:00] VITALS: BP 126/73
[2018-07-30] VITALS: BP 112/79
--- NOTE | 2018-07-30 02:00 | NUR ---
ASSUMED CARE OF PATIENT AT 1900. VSS, AFEBRILE. REMAINS IN AFIB HOWEVER RATES ARE IN THE 70'S, BP ON THE LOWER SIDE. CARDIZEM GTT STOPPED. ON BIPAP THROUGH THE NIGHT, FAMILY TO BRING CPAP IN AM. DENIES PAIN. UP TO CHAIR UNTIL READY FOR BED. NO OTHER CONCERNS AT THIS TIME.
[2018-07-30 02:34] LABS: ABSOLUTE EOSINOPHILS 0.1 thou/uL (0.0-0.7); ABSOLUTE LYMPHOCYTES 0.9 thou/uL (0.8-5.3); ABSOLUTE MONOCYTES 0.8 thou/uL (0.0-1.2); ABSOLUTE NEUTROPHILS 4.6 thou/uL (1.6-8.1); BASOPHILS 0.8 %; HEMATOCRIT 24.9 % (42.0-52.0); HEMOGLOBIN 7.9 gm/dL (14.0-18.0); MCHC 31.7 g/dL (28.0-37.0); MCV 88.4 fL (80.0-100.0); MPV 8.6 fl. (7.2-11.1); NUCLEATED RBCS 0 /100WBC; PLATELET COUNT* 163 thou/uL (150-400); POLYS 71.2 %; RBC 2.81 mil/uL (4.50-6.00); RDW-CV 16.4 % (10.5-14.5); WBC 6.5 thou/uL (4.0-11.0)
[2018-07-30 02:46] LABS: % SATURATION 7 % (20-39); IRON 24 ug/dL (50-175)
[2018-07-30 02:50] LABS: ANION GAP < 0 mmol/L (7-16); BUN 26 mg/dL (7-18); CALCIUM 9.6 mg/dL (8.5-10.1); CHLORIDE 99 mmol/L (98-107); CO2 43 mmol/L (21-32); CREATININE 1.5 mg/dL (0.6-1.3); GLUCOSE 77 mg/dL (70-99); SODIUM 140 mmol/L (136-145)
[2018-07-30 04:00] VITALS: BP 118/79
[2018-07-30 12:27] VITALS: BP 115/67
--- NOTE | 2018-07-30 13:40 | NUR ---
MET WITH PT TO DISCUSS HOME SITUATION/DC PLANNING. PT KNOWN TO CM FROM PREVIOUS HOSPITAL STAY. PT LIVES WITH . FAMILY LIVES CLOSEBY AND ASSISTS IN CARE. GRANDSON HAS BEEN STAYING WITH PT DURING THE DAY SINCE LAST DC. PT USES O2, CPAP AND WALKER. HE IS FOLLOWED AT HOME BY [facility] AND WANTS TO CONTINUE WITH THEM AT DC. PT GOES TO WOUND CARE CENTER ALSO. DENIES OTHER NEEDS THAN HH. CM TO FOLLOW [facility] [phone] FAX [phone]
--- NOTE | 2018-07-30 14:36 | NUR ---
WOUND CARE NOTE: CONSULT RECEIVED FOR DM ULCER TO RLE PATIENT KNOWN FROM PREVIOUS HOSPITAL STAY. PATIENT HAS A LARGE ULCERATION TO THE POSTERIOR ASPECT OF HIS RIGHT LEG MEASURING 8X7.2X1.2. APPROXIMATELY 85% OF THE WOUND BED WITH YELLOW/BLACK SLOUGH TISSUE. 15% RED, MOIST, GRANULATION TISSUE. SEAN-WOUND WITH SLIGHT ERYTHEMA. SEROSANGUINEOUS DRAINAGE NOTED. CLEANSED WITH WOUND CLEANSER. OBTAINED CULTURES. APPLIED DRY 4X4, ABD, KERLIX AND RAMU WRAP AT THAT TIME. PHYSICIAN HAD ORDERED 1/4 STRENGTH DAIKINS. RN TO APPLY WHEN ARRIVES TO UNIT. EDUCATED PATIENT ON NEW DRESSING ORDERS, COMMUNICATED UNDERSTANDING. RECOMMEND ENCOURAGE GOOD NUTRTION/HYDRATION TIGHT BLOOD GLUCOSE CONTROL FOLLOW UP IN WOUND CENTER UPON DISCHARGE DAILY DRESSING CHANGES
[2018-07-30 16:23] VITALS: BP 108/75
[2018-07-30 20:00] VITALS: BP 126/87
--- NOTE | 2018-07-30 20:23 | NUR ---
ASSUMED PT CARE AT 0730, FULL ASSESMENT DONE CHARTED. PT A/O X4, DENIES PAIN. HR MAINTAINED THROUGH THE SHIFT IN 90'S-LOW 100'S, REMAINS AFIB, SEVERAL EPISODES OF 160'S WHEN PT UP AMBULATING, HR STABALIZES WITHIN A COUPLE OF MIN. PT ON 3L O2, BIPAP HS. BP ELEVATED THIS AM, CAME DOWN AFTER AM MEDS. PT TO HAVE EGD/COLONOSCOPY TOMORROW, NPO AFTER MIDNIGHT, WORKING ON BOWEL PREP. WOUND CARE/DR SYED PT WOUND TODAY, REDRESSED IT AND, ORDERS IN COMPUTER. PT USING URINAL, USES CALL LIGHT APPROPRIALTY. FALL PRECAUTIONS IN PLACE. REPORT GIVEN TO PIETER WATERS
--- NOTE | 2018-07-30 22:32 | NUR ---
ASSUMED PT CARE REPORT RECEIVED FROM NURSE PT IS AOX4 AFIB ON MONITOR. BOWEL PREP GOLYTELY BEING TAKEN. PT IS SITTING IN CAHIR. JOCELYN SOFTERNER GIVEN FOR BOWEL PREP. INSULIN ADMINSTERED.MAG REPLACEMENT GIVEN. SHYANNE CONTINUE TO MONITOR
--- NOTE | 2018-07-30 23:48 | NUR ---
PT HAD FIRST BOWEL MOVEMENT FOR BOWEL PREP. STOOL IS LIQUID BROWN WITH SMALLL PARTICLE OF FORMED STOOL. OCCULT BLOOD SAMPLE SENT OT LAB . AEROBIC AND ANAEROBIC CULTURES TAKEN AND SENT TO LAB. PT NOT ON BIPAP TONIGHT BECAUSE OF FREQUENT NEED TO GO TO [place]. WOUND DRESSING INTACT. WILL CONTINUE TO MONITOR.
[2018-07-31] VITALS (16 sets, daily range): BP systolic 97–125; BP diastolic 40–83
[2018-07-31 05:34] LABS: CALCIUM 9.2 mg/dL (8.5-10.1); CREATININE 1.4 mg/dL (0.6-1.3); POTASSIUM 3.1 mmol/L (3.5-5.1)
--- NOTE | 2018-07-31 07:32 | NUR ---
K REPLACEMENT GIVEN THIS AM. K WAS 3.1. PT HAD A TOTOAL AF THREE BM DURING NIGHT SECOND TO BOWEL PREP. BM IS LIQUID BROWN. CONSENT FOR EGD SIGNED. PT IS NOW SITTING ON CHAIR AT BEDSIDE.
--- NOTE | 2018-07-31 12:14 | NUR ---
PATIENT ARRIVED TO UNIT AT 1130 FROM PACU. WAS PREIVOUSLY ON 2E. CAME TO UNIT FOR A-FIB RVR EPISODE DURING COLONOSCOPY. UPON ARRIVING, REMAINS IN A-FIB WITH RATE IN 100S-110S. DID HAVE EPISOE OF RAPID RATE UPON STANDING AND WALKING TO BED FROM CART, WHICH RETURNED TO BASELINE UPON RELAXING IN BED. DIET REORDERED BY GI. THEY STATED THEY DID NOT FIND ANYTHING DURING THE PROCEDURE, BUT NEED TO SCHEDULE A CAPSULE ENDOSCOPY OUTPATIENT AFTER DISCHARGE. ALL AM MEDS GIVEN AFTER ARRIVAL WITH EXCEPTION OF IRON INFUSION AND ZOSYN THEY REMAIN ON THE FLOOR. NURSE NOTIFIED TO BRING THEM DOWN. PATIENT AOX4, SITTING UP IN BED. STATES HIS PAIN IS A 6/10, BUT NOTHING HAS HELPED AND HE DOES NOT NEED ANYTHING AT THIS TIME EXCEPT A SPRITE. PROVIDED WITH SPRITE AND WATER. PATIENT CALLED SPOUSE TO UPDATE HER ON STATUS. WILL CONTINUE WITH CURRENT PLAN OF CARE.
--- NOTE | 2018-07-31 18:01 | NUR ---
PATIENT ASSESSMENT REMAINED STABLE THIS SHIFT. AOX4, BUT TIRED R/T BOWEL PREP LAST NOC. REMAINS TRACING A-FIB WITH CONTROLLED RATE OF 70-110 SINCE TRANSFER. CARDIZEM GTT ON STANDBY, BUT HAS NOT BEEN REQUIRED. RATES PAIN IN ABDOMEN AT 4-6 THIS SHIFT, BUT DENIES NEEDS FOR MEDICATION. UP STANDBY. UP IN CHAIR MOST OF SHIFT, HE STATES THE BED HURTS HIS BACK. LASIX BID. FLUID RESTRICTION, 1100 OF 1500 GIVEN TODAY. VOIDING LARGE AMOUNTS OF CLEAR YELLOW URINE. I&O RECORDED. GOOD APPETITE. BLOOD GLUCOSE WNL. NO SLIDING SCALE REQUIRED.
[2018-08-01] VITALS (22 sets, daily range): BP systolic 100–131; BP diastolic 47–91
[2018-08-01 03:41] LABS: HEMATOCRIT 26.4 % (42.0-52.0); HEMOGLOBIN 8.5 gm/dL (14.0-18.0); MCV 87.5 fL (80.0-100.0); RBC 3.02 mil/uL (4.50-6.00); RDW-CV 17.1 % (10.5-14.5); WBC 5.8 thou/uL (4.0-11.0)
[2018-08-01 04:15] LABS: CALCIUM 9.1 mg/dL (8.5-10.1); CREATININE 1.4 mg/dL (0.6-1.3); PHOSPHORUS* 3.6 mg/dL (2.5-4.9); POTASSIUM 3.3 mmol/L (3.5-5.1)
--- NOTE | 2018-08-01 06:16 | NUR ---
ASSUMED PT CARE AT 1930. NURSING ASSESSMENT COMPLETED AT START OF SHIFT AND Q4H. NICKEL PLATER IN PLACE, TRACING AFIB WITH HR 80'S-110'S THIS SHIFT. PT WEARING CPAP AT HS. PT SLEPT IN RECLINER, ENCOURAGED TO REPOSITION/EDUCATED ON IMPORTANCE OF REPOSITIONING Q2H TO PREVENT BREAKDOWN, PT VOICED UNDERSTANDING. VSS, AFEBRILE, NEGATIVE SEPSIS SCREENING.
--- NOTE | 2018-08-01 14:39 | NUR ---
PATIENT TRANSFERING TO ROOM 308. REPORT GIVEN TO EVELIN YA. ALL QUESTIONS ANSWERED. NURSE COMING DOWN WITH WHEELCHAIR TO TAKE PATIENT AND BELONGINGS UPSTAIRS. AND FAMILY PRESENT AND HAVE BEEN MADE AWARE BY THIS NURSE.
--- NOTE | 2018-08-01 17:45 | NUR ---
PATIENT PROGRESSING TOWARDS GOALS. RHYTHM REMAINS A-FIB WITH CONTROLLED RATE OF 70-110. DOES STILL INCREASE WITH EXERTION. NO NEW CHANGES IN PATIENT STATUS TODAY.
[2018-08-02] VITALS (11 sets, daily range): BP systolic 107–164; BP diastolic 67–95
[2018-08-02 02:09] LABS: HEMATOCRIT 26.1 % (42.0-52.0); HEMOGLOBIN 8.3 gm/dL (14.0-18.0); MCHC 31.9 g/dL (28.0-37.0); MCV 87.8 fL (80.0-100.0); MPV 8.2 fl. (7.2-11.1); RBC 2.97 mil/uL (4.50-6.00); RDW-CV 16.8 % (10.5-14.5); WBC 6.3 thou/uL (4.0-11.0)
[2018-08-02 02:45] LABS: CALCIUM 9.4 mg/dL (8.5-10.1); CREATININE 1.7 mg/dL (0.6-1.3); MAGNESIUM 2.1 mg/dL (1.8-2.4); POTASSIUM 3.6 mmol/L (3.5-5.1)
--- NOTE | 2018-08-02 06:12 | NUR ---
Pt reports resting well overnight. In recliner overnight because he states bed is uncomfortable on his back. Encouraged repositioning to prevent skin breakdown; waffle cushion being utilized. VSS. O2 sats in mid-80s at times while CPAP on. O2 increased from 3 to 4 lpm thru CPAP. Abdomen still distended and states some pain/discomfort; denies need for pain meds. Remains Afib per monitor; rate 90s-110s per monitor at rest, up to 140s-150s with activity. Will continue to monitor.
--- NOTE | 2018-08-02 07:55 | NUR ---
ASSUMED PT CARE 0730. PT A/O X'S 4. VSS. DENIES PAIN. PT CHANGED FROM HOME CPAP TO 3L NC. SATTING 91-98% ON 3L NC. EDUCATION ON FLUID RESTRICTION. PT SITTING IN RECLINER WITH LEGS ELEVATED. PT EXPRESSED DESIRE TO GET OUT OF ICU, GO TO FLOOR, AMBULATE AND AND USE A BATHROOM. BILATERAL FEET EDEMA 2+. PT REPORTS EDEMA "LOOKS BETTER". PT TRACING AFIB WITH HEART RATE IN 90'S -112.
--- NOTE | 2018-08-02 09:32 | NUR ---
PT STOOD UP TO VOID AND PT HR WENT TO 160'S - 170'S. HR CAME BACK DOWN TO 107 AFTER SITTING DOWN. CARDIOLOGY IN THIS AM AND RELAYED HR INCREASING TO 160'S WHEN STANDING UP. DIGOXIN ORDERED. ASKED CARDIOLOGY TO CLARIFY IF WANTING 80MG DAILY OR 40MG BID. PER CARDIOLOGY PT TO HAVE 80MG DAILY OF 08/01. PER INTERNAL MEDICINE 40MG BID. RECEIVED ORDER TO CHANGE TO 80MG DAILY. PT ALREADY RECEIVED 40MG LASIX AND RECEIVED ORDER TO ADMINISTER 40MG LASIX THIS AM.
--- NOTE | 2018-08-02 10:30 | NUR ---
PT SLEEPING SO DID NOT DISTURB. PT NOW TELE STATUS, CONTINUES TO ELEVATED HEARTRATE WHEN HE STANDS UP OR WITH MINIMAL ACTIVITY. CASE MGT WILL CONTINUE TO FOLLOW.
--- NOTE | 2018-08-02 12:36 | NUR ---
WOUND NURSE: PATIENT SEEN FOR WOUND CARE TO [facility] WOUND: PRESENTS WITH 75% RED GRANULATION TISSUE AND 25% DRIED BLOOD IN THE WOUND BED. MODERATE AMOUNT OF SANGUINOUS DRAINAGE ON THE OLD DRESSING. REMOVED DRESSING AND CLEANSED WITH SOAP AND WATER, RINSED WITH WATER, THEN PATTED DRY. APPLIED 1/4 STR DAKINS DAMPENED GAUZE ONTO THE WOUND BED, THEN COVERED WITH AN ABD, THEN WRAPPED WITH KERLEX ROLL GAUZE UNDER RAMU WRAP. PATIENT WAS PROVIDED INSTRUCTION ON MEASURES TO PROMOTE HEALING AND PREVENT COMPLICATIONS TO AFFECTED AREA. PATIENT STATED HE UNDERSTOOD.
--- NOTE | 2018-08-02 14:07 | NUR ---
Nutrition Pt assessed for high BMI. Wt is near usual of ~315#. Pt has open wound. RD ordered Erick packets b.i.d. for wound healing. ABX. BG 186, BUN 23, cr 1.7, albumin 3.4. Good meal intake, Heart Healthy diet order. Some edema. INCREASED NUTRIENT NEEDS R/T PROTEIN AEB OPEN WOUND. GOALS: Erick b.i.d., continue good meal intake >75%, gradual wt loss, recommend MVI use dialy to aid in wound healing. Consider Mild risk at this time.
--- NOTE | 2018-08-02 18:35 | NUR ---
PT SAT IN CHAIR 11 1/2 HOURS THIS SHIFT WITH WAFFLE CUSHION IN PLACE. PT VOIDING PER URINAL. PT HAD 100ML FLUIDS IN, 765 OF ORAL FLUIDS, URINE OUTPUT OF 1050. RIGHT LEG WOUND DRESSING CHANGED BY WOUND CARE. DR EDWARDS ALSO SAW PT AND REPORTED WOULD BE BACK TOMORROW.
[2018-08-03 00:31] VITALS: BP 107/80
[2018-08-03 02:33] LABS: CALCIUM 8.9 mg/dL (8.5-10.1); CREATININE 1.7 mg/dL (0.6-1.3); POTASSIUM 3.8 mmol/L (3.5-5.1)
[2018-08-03 04:33] VITALS: BP 99/78
--- NOTE | 2018-08-03 06:40 | NUR ---
PATIENT PROGRESSING WELL TOWARDS GOALS. UP TO CHAIR AT THIS TIME, ON 3 LITERS NASAL CANULA. TOLERATED WELL. HEART RATE A LITTLE ELEVATED AFTER GETTING UP. DENIES PAIN, NAUSEA OR SHORTNESS OF AIR. CALL LIGHT IN REACH, WORLD RENOWNED CHEF AND RESTAURANT OWNER IN PLACE.
[2018-08-03 12:27] VITALS: BP 103/62
--- NOTE | 2018-08-03 12:40 | NUR ---
PT DENIES PAIN. FLUID RESTRICTION INCREASED TO 2L PER DR RICH. PT EDUCATED ON FLUID RESTRICTION AND COMPLIANCE. PT SITTING IN RECLINER WITH WAFFEL CUSHION IN PLACE AND LEGS ELEVATED. PT ON 3L NC. PT VOIDING PER URINAL. WILL CONTINUE PLAN OF CARE.
[2018-08-03 16:08] VITALS: BP 107/65
--- NOTE | 2018-08-03 18:17 | NUR ---
INTAKE AND OUTPUT RECORDED. PT IN RECLINER WITH WAFFLE CUSHION THIS SHIFT. PT EATING 90% OF MEALS. AT BEDSIDE. VSS. AFEBRILE.
--- NOTE | 2018-08-03 18:42 | NUR ---
PATIENT TRANSFERRED FROM ICU TO ROOM 214. ALERT AND ORIENTED. DENIES PAIN. AGREE WITH PREVIOUS ASSESSMENT. ZOSYN INFUSING. UP IN RECLINER. O2 3L. TUBIGRIP NOTED TO LEFT LEG, DRESSING NOTED TO RIGHT LEG C/D/I. EDUCATED ON FALL PREVENTION. ORIENTED TO ROOM. CALL LIGHT WITHIN REACH. WILL CONTINUE TO MONITOR.
[2018-08-03 20:00] VITALS: BP 151/79
[2018-08-04 01:17] VITALS: BP 129/80
--- NOTE | 2018-08-04 03:18 | NUR ---
ASSUMED CARE OF PATIENT AT 1900. VSS, AFEBRILE. UP TO CHAIR UNTIL READY FOR BED. AMBULATES WELL WITH WALKER. USING CPAP AT NIGHT. REMAINS IN AFIB. DENIES PAIN, SOA OR N/V. PROGRESSING WELL TOWARDS POC GOALS.
[2018-08-04 04:00] VITALS: BP 123/75
[2018-08-04 08:37] VITALS: BP 142/91
--- NOTE | 2018-08-04 08:37 | NUR ---
RECEIVED REPORT FROM SPIKE MAKER RN AASHISH. ALL QUESTIONS ANSWERED. PATIENT IS AXOX4, ASSESMENT CHARTED. DENIES PAIN, NAUSEA, VOMITTING OR SHORTNESS OF AIR AT THIS TIME. ON 3 LITERS NASAL CANULA WHICH IS PATIENTS HOME DOSE OF O2. GOALS ARE TO CHANGE LEG DRESSING TODAY, INCREASE ACTIVITY AND POSSIBLY D/C TO HOME. BED IN LOWEST POSITION, TAIL TRIMMER IN PLACE, CALL LIGHT IN REACH, WILL CONTINUE TO MONITOR.
[2018-08-04] MEDS ORDERED: DIGOXIN250 MCG PO (11:49)
[2018-08-04] MEDS ORDERED: IPRAT-ALBUT 0.5-3 ML INH (11:51)
--- NOTE | 2018-08-04 11:51 | NUR ---
GRAIN BROKER AND MARKET OPERATOR SPOKE TO THE PATIENT TO DISCUSS DISCHARGE PLANNING NEEDS AND HH AT D/C. PATIENT INFORMS THAT HE WAS ON-SERVICE WITH [facility] PRIOR TO ADMISSION AND WOULD LIKE TO USE THEM AT D/C. D/C COMBATANT DIVER QUALIFIED SPOKE TO ANNAMARIE WITH [facility] TO INFORM OF THE REFERRAL FOR HH AND FAXED ORDERS TO [facility] AT D/C. CM WILL REMAIN AVAILABLE TO ASSIST AND FOLLOW NEEDED.
[2018-08-04] MEDS ORDERED: LASIX 80 MG TAB80 MG PO (11:52)
[2018-08-04] MEDS ORDERED: DIFLUCAN200 MG PO (11:54)
[2018-08-04] MEDS ORDERED: INSPRA25 MG PO (11:56)
[2018-08-04] MEDS ORDERED: POTASSIUM20 PO (11:58)
[2018-08-04 12:00] VITALS: BP 115/75
[2018-08-04] MEDS ORDERED: COLACE100 MG PO (12:23)
[2018-08-04] MEDS ORDERED: AUGMENTIN 500-1 EACH PO (15:31)
--- NOTE | 2018-08-04 16:12 | PATH ---
[address] [address] PATHOLOGY RPT PROCEDURE Name: ARTEMIO NAVARRO SR Room: [address] IN .R.#: [id number] Admission: 07/29/18 Date of : 56 Discharge: Report #: [id number] Path Case #: [id number] [facility] Accession Number: [id number] . 01 Material submitted: . CECAL POLYP . 01 Clinical history: . Cecal polyp . 02 Diagnosis: Cecal polyp: - Tubular adenoma, negative for high-grade dysplasia. (LISSETTE:jina; 08/03/2018) QMS/08/03/2018 . 02 Electronically signed: . Alexander Avitia MD, Pathologist NPI- [id number] . 01 Gross description: . The specimen is received in formalin, labeled "Artemio Navarro Sr, cecal polyp" and consists of a fragment of soft real tissue measuring 0.5 x 0.3 x 0.2 cm which is entirely submitted in A1. (SDY; 08/02/2018) SYU/SYU . 02 Pathologist provided ICD-10: D12.0 . 02 CPT . 260701 Specimen Comment: A courtesy copy of this report has been sent to Specimen Comment: [phone], . Specimen Comment: Report sent to / DR WEBB Performed at: [address], [place], [place] [id number] MD Pardeep Molina MD Phone: [phone] Performed at: [address] [address] [address], [place], [place] [id number] MD Alexander Avitia MD Phone: [phone]
--- NOTE | 2018-08-04 16:52 | NUR ---
PATIENT GOING HOME WITH THIS EVENING. WAITING ON ECHO TO BE READ BY PHYSICIAN AND ONCE AN EF IS IN THE CHART I WILL GIVE PATIENT DISCHARGE INFORMATION AND PRESCRIPTIONS.
[2018-08-04 17:04] VITALS: BP 123/73
--- NOTE | 2018-08-04 17:16 | 2DMMODE ---
[place] [address] 2 D/M-MODE ECHOCARDIOGRAM Name: KARL LAO Room: [address] IN [facility]#: [id number] Admission: 07/29/18 Attend Phys: Negrita Sherman MD Discharge: Date of : 56 Date of Service: 08/04/18 1716 Report #: [id number] THIS REPORT FOR: //name// APPROVED REPORT Study performed: 08/04/2018 15:14:38 EXAM: Comprehensive 2D, Doppler, and color-flow Echocardiogram Patient Location: In-Patient Room #: [facility] Status: routine BSA: 2.51 HR: 79 bpm BP: 115/75 mmHg Rhythm: Atrial Fibrillation Other Information Technically limited study due to body habitus, poor endocardial definition. Indications Congestive Heart Failure Atrial Fibrillation Echo Enhancing Agent Indication: Endocardial border delineation Agent(s) / Amount(s) Used: Optison 3 cc 2D Dimensions IVSd: 15.31 (7-11mm) LVOT Diam: 23.69 (18-24mm) LVDd: 55.15 mm PWd: 13.79 (7-11mm) Ascending Ao: 39.94 (22-36mm) LVDs: 38.83 (25-40mm) Aortic Root: 39.50 mm Volumes Left Atrial Volume (Systole) LA ESV Index: 68.80 mL/m2 Aortic Valve AoV Peak Toribio.: 1.34 m/s AO Peak Gr.: 7.23 mmHg LVOT Max P.30 mmHg AO Mean Gr.: 4.29 mmHg LVOT Mean P.74 mmHg LVOT Max V: 1.04 m/s AO V2 VTI: 24.23 cm LVOT Mean V: 0.58 m/[place] [address] 2 D/M-MODE ECHOCARDIOGRAM Name: KARL LAO Room: [address] IN ..#: [id number] Admission: 07/29/18 Attend Phys: Negrita Sherman MD Discharge: Date of : 56 Date of Service: 08/04/18 1716 Report #: [id number] XAVIER (VTI): 3.35 cm2 LVOT V1 VTI: 18.40 cm Mitral Valve MV Decel. Time: 209.67 ms MV PHT: 60.80 ms MVA (PHT): 3.62 cm2 TDI Medial E' Toribio.: 0.17 m/s Lateral E' Toribio.: 0.14 m/s Pulmonary Valve PV Peak Toribio.: 0.95 m/s PV Peak Gr.: 3.64 mmHg Tricuspid Valve RAP Estimate: 5.00 mmHg TR Peak Gr.: 26.35 mmHg RVSP: 31.00 mmHg PA Pressure: 31.00 mmHg Left Ventricle The left ventricle is normal size. There is normal LV segmental wall motion. Mild concentric left ventricular hypertrophy. Left ventricular systolic function is normal. LVEF is 55-60%. This study is not technically sufficient to allow evaluation of the LV diastolic function due to atrial fibrillation. Right Ventricle The right ventricle is normal size. The right ventricular systolic function is normal. Atria Left atrium is severely dilated. Right atrium is moderately dilated. Aortic Valve Mild aortic valve sclerosis. No aortic regurgitation is present. There is no aortic valvular stenosis. Mitral Valve There is mitral annular calcification. Trace mitral regurgitation. No evidence of mitral valve stenosis. Tricuspid Valve The tricuspid valve is normal in structure. Mild tricuspid regurgitation. [place] [address] 2 D/M-MODE ECHOCARDIOGRAM Name: KARL LAO Room: [address] IN [facility]#: [id number] Admission: 07/29/18 Attend Phys: Negrita Sherman MD Discharge: Date of : 56 Date of Service: 08/04/18 1716 Report #: [id number] Pulmonic Valve The pulmonary valve is normal in structure. Trace pulmonic regurgitation. Great Vessels The aortic root is normal in size. IVC is not well visualized. Pericardium There is no pericardial effusion. <Conclusion> The left ventricle is normal size. Mild concentric left ventricular hypertrophy. Left ventricular systolic function is normal. LVEF is 55-60%. This study is not technically sufficient to allow evaluation of the LV diastolic function due to atrial fibrillation. Left atrium is severely dilated. Right atrium is moderately dilated. Trace mitral regurgitation. Mild tricuspid regurgitation. Mild pulmonary hypertension. <ELECTRONICALLY SIGNED> By: Luis Diaz MD, FACC 08/04/181715 15 15 Luis Diaz MD, FACC /INF
--- NOTE | 2018-08-04 17:33 | NUR ---
DR RICH AT BEDSIDE AT THIS TIME. OK TO D/C, ECHO DONE AND EF IN COMPUTER.
--- NOTE | 2018-08-04 18:40 | NUR ---
patient d/c to home with . all discharge information given. belongings sent with patient. all questions answered.
== END 2018-08-04 18:39 | disposition home health service (06) | DRG 813 ==
LOC: M.ERS 14:22 → M.2W 15:19 → M.TBA-ER 15:19 → M.2W 17:26 → M.ICU 07-31 11:35 → M.2W 08-03 18:34
PROVIDERS: Emergency Medicine Emergency Medical Services; Internal Medicine Cardiovascular Disease; Internal Medicine Gastroenterology; ADMIT Family Medicine
PROC: 5A09357 Assistance with Respiratory Ventilation, Less than 24 Consecutive Hours, Continuous Positive Airway Pressure (ICD-10-PCS; principal; 2018-07-30)
PROC: 0DJ08ZZ Inspection of Upper Intestinal Tract, Via Natural or Artificial Opening Endoscopic (ICD-10-PCS; 2018-07-31)
PROC: 0DBH8ZZ Excision of Cecum, Via Natural or Artificial Opening Endoscopic (ICD-10-PCS; 2018-07-31)
PROC: 5A09357 Assistance with Respiratory Ventilation, Less than 24 Consecutive Hours, Continuous Positive Airway Pressure (ICD-10-PCS; 2018-07-31)
PROC: 5A09357 Assistance with Respiratory Ventilation, Less than 24 Consecutive Hours, Continuous Positive Airway Pressure (ICD-10-PCS; 2018-08-01)
PROC: 5A09457 Assistance with Respiratory Ventilation, 24-96 Consecutive Hours, Continuous Positive Airway Pressure (ICD-10-PCS; 2018-08-01)
DX: D68.32 Hemorrhagic disorder due to extrinsic circulating anticoagulants (principal); I50.33 Acute on chronic diastolic (congestive) heart failure; I13.0 Hypertensive heart and chronic kidney disease with heart failure and stage 1 through stage 4 chronic kidney disease, or unspecified chronic kidney disease; J96.10 Chronic respiratory failure, unspecified whether with hypoxia or hypercapnia; L97.819 Non-pressure chronic ulcer of other part of right lower leg with unspecified severity; Z68.42 Body mass index [BMI] 45.0-49.9, adult; N18.3 Chronic kidney disease, stage 3 (moderate); E11.622 Type 2 diabetes mellitus with other skin ulcer; E66.01 Morbid (severe) obesity due to excess calories; I48.91 Unspecified atrial fibrillation; K44.9 Diaphragmatic hernia without obstruction or gangrene; D50.9 Iron deficiency anemia, unspecified; G47.33 Obstructive sleep apnea (adult) (pediatric); K64.8 Other hemorrhoids; K64.4 Residual hemorrhoidal skin tags; E78.00 Pure hypercholesterolemia, unspecified; J44.9 Chronic obstructive pulmonary disease, unspecified; I87.2 Venous insufficiency (chronic) (peripheral); K21.9 Gastro-esophageal reflux disease without esophagitis; M10.9 Gout, unspecified; F32.9 Major depressive disorder, single episode, unspecified; E11.22 Type 2 diabetes mellitus with diabetic chronic kidney disease; Z91.048 Other nonmedicinal substance allergy status; Z99.81 Dependence on supplemental oxygen; Z82.49 Family history of ischemic heart disease and other diseases of the circulatory system; Z87.891 Personal history of nicotine dependence

== ENCOUNTER → 2018-08-11 | Outpatient (CLI) | payer OTHER ==
[~2018-08-11] MED LIST changes: +AUGMENTIN 500-1 EACH PO; +DIFLUCAN200 MG PO; +DIGOXIN250 MCG PO; +INSPRA25 MG PO; +IPRAT-ALBUT 0.5-3 ML INH
== END ==
LOC: M.WC 03:10
DX: E11.622 Type 2 diabetes mellitus with other skin ulcer (principal); L89.893 Pressure ulcer of other site, stage 3; L97.812 Non-pressure chronic ulcer of other part of right lower leg with fat layer exposed; E11.40 Type 2 diabetes mellitus with diabetic neuropathy, unspecified; E78.00 Pure hypercholesterolemia, unspecified; I11.0 Hypertensive heart disease with heart failure; I50.9 Heart failure, unspecified; G47.30 Sleep apnea, unspecified; I48.91 Unspecified atrial fibrillation; Z87.891 Personal history of nicotine dependence

== ENCOUNTER → 2018-08-25 | Outpatient (CLI) | payer OTHER | LOC: M.WC 08-18 13:00 | DX: S81.801A Unspecified open wound, right lower leg, initial encounter (principal); E11.40 Type 2 diabetes mellitus with diabetic neuropathy, unspecified; E78.00 Pure hypercholesterolemia, unspecified; G47.30 Sleep apnea, unspecified; I11.0 Hypertensive heart disease with heart failure; I50.9 Heart failure, unspecified; I48.91 Unspecified atrial fibrillation; Z87.891 Personal history of nicotine dependence; X58.XXXA Exposure to other specified factors, initial encounter; Y93.89 Activity, other specified; Y92.89 Other specified places as the place of occurrence of the external cause; Y99.8 Other external cause status ==

== ENCOUNTER → 2018-09-01 | Outpatient (CLI) | payer OTHER | LOC: M.WC 03:18 | DX: T81.89XD Other complications of procedures, not elsewhere classified, subsequent encounter (principal); E11.628 Type 2 diabetes mellitus with other skin complications; L03.115 Cellulitis of right lower limb; E11.40 Type 2 diabetes mellitus with diabetic neuropathy, unspecified; E78.00 Pure hypercholesterolemia, unspecified; I11.0 Hypertensive heart disease with heart failure; I50.9 Heart failure, unspecified; I48.91 Unspecified atrial fibrillation; G47.30 Sleep apnea, unspecified; Z87.891 Personal history of nicotine dependence; Y83.8 Other surgical procedures as the cause of abnormal reaction of the patient, or of later complication, without mention of misadventure at the time of the procedure ==

== ENCOUNTER → 2018-09-08 | Outpatient (CLI) | payer OTHER ==
[~2018-09-08] MED LIST changes: +OMEGA 3; +SPIRONOLACTONE25 M1
== END ==
LOC: M.WC 04:32
DX: L03.115 Cellulitis of right lower limb (principal); E11.40 Type 2 diabetes mellitus with diabetic neuropathy, unspecified; E78.00 Pure hypercholesterolemia, unspecified; G47.30 Sleep apnea, unspecified; I11.0 Hypertensive heart disease with heart failure; I50.9 Heart failure, unspecified; I48.91 Unspecified atrial fibrillation; Z87.891 Personal history of nicotine dependence

== ENCOUNTER 2018-09-09 19:44 | Emergency (ER) | payer OTHER ==
[~2018-09-09] VITALS: Ht 175.3 cm; Wt 131.5 kg
[~2018-09-09 19:44] MED LIST changes: -OMEGA 3; -SPIRONOLACTONE25 M1
[2018-09-09] MEDS ORDERED: OMEGA 3 (20:03)
[2018-09-09] MEDS ORDERED: SPIRONOLACTONE25 M1 (20:03)
[2018-09-09 20:22] LABS: HEMATOCRIT 35.7 % (42.0-52.0); HEMOGLOBIN 11.7 gm/dL (14.0-18.0); MCH 28.1 pg (26.0-34.0); MCHC 32.6 g/dL (28.0-37.0); MCV 86.2 fL (80.0-100.0); MPV 9.4 fl. (7.2-11.1); NUCLEATED RBCS 0 /100WBC; PLATELET COUNT* 150 thou/uL (150-400); RBC 4.15 mil/uL (4.50-6.00); RDW-CV 18.8 % (10.5-14.5); WBC 7.5 thou/uL (4.0-11.0)
[2018-09-09 20:27] LABS: ANION GAP 6 mmol/L (7-16); BUN 34 mg/dL (7-18); CALCIUM 9.3 mg/dL (8.5-10.1); CHLORIDE 91 mmol/L (98-107); CO2 30 mmol/L (21-32); CREATININE 1.8 mg/dL (0.6-1.3); GLUCOSE 475 mg/dL (70-99); POTASSIUM 4.8 mmol/L (3.5-5.1); SODIUM 127 mmol/L (136-145)
[2018-09-09 20:38] LABS: ALBUMIN 3.7 g/dL (3.4-5.0); ALKALINE PHOSPHATASE 91 U/L (46-116); LIPASE 251 U/L (73-393); NT-PRO BRAIN NAT PEPTIDE 714 pg/mL (<300); SGOT 19 U/L (15-37); SGPT 35 U/L (30-65); TOTAL BILIRUBIN 0.4 mg/dL (<0.1-1.0); TOTAL PROTEIN 7.2 g/dL (6.4-8.2); TROPONIN-I LEVEL <0.06 ng/mL (<0.06)
[2018-09-09 20:41] LABS: ABSOLUTE EOSINOPHILS 0.1 thou/uL (0.0-0.7); ABSOLUTE LYMPHOCYTES 0.6 thou/uL (0.8-5.3); ABSOLUTE MONOCYTES 0.6 thou/uL (0.0-1.2); ABSOLUTE NEUTROPHILS 6.2 thou/uL (1.6-8.1); ATYPICAL LYMPHS 3 %; PLATELET ESTIMATE ADEQUATE
[2018-09-09 21:23] LABS: URINE BILIRUBIN NEGATIVE (Negative); URINE BLOOD NEGATIVE (Negative); URINE CLARITY CLEAR; URINE COLOR YELLOW; URINE GLUCOSE-RANDOM 3+ (Negative); URINE KETONES NEGATIVE (Negative); URINE LEUKOCYTES-REFLEX NEGATIVE (Negative); URINE NITRITE-REFLEX NEGATIVE (Negative); URINE PROTEIN NEGATIVE (Negative); URINE SPECIFIC GRAVITY <= 1.005 (1.005-1.030); URINE UROBILINOGEN 0.2 E.U./dl (0.2-1.0)
[2018-09-09 23:00] VITALS: BP 148/68
--- NOTE | 2018-09-10 11:25 | EKG ---
[place] [address] ELECTROCARDIOGRAM REPORT Name: KARL LAO Room: [facility]#: [id number] Admission: 09/09/18 Attend Phys: Discharge: 09/09/18 Date of : 56 Report #: [id number] THIS REPORT FOR: //name// [facility] ED Test Date: 2018-09-09 Test Time: 20:21:52 Pat Name: KARL LAO Department: Room: Gender: M Merchandise Appraiser: CATRACHITO : 1960 Requested By: Tunde Stacy Order Number: [id number] MD: Adam Dash Measurements Intervals [place] Rate: 82 P: CT: QRS: 141 QRSD: 120 T: 208 QT: 358 QTc: 418 Interpretive Statements Atrial fibrillation Left posterior fascicular block Repol abnrm, severe global ischemia (LM/MVD) Baseline wander in lead(s) V2 Compared to ECG 07/29/2018 14:29:14 Possible ischemia now present Prolonged QT interval no longer present Electronically Signed On 09-10-2018 11:25:19 ANIMAL CARE TAKER by Adam Dash [email or web address] <ELECTRONICALLY SIGNED> By: Adam Dash MD, FACC 09/10/18 1125 20 20 Adam Dash MD, [facility] /EPI
== END 2018-09-09 23:00 | disposition home or self-care (01) ==
LOC: M.ERS 19:44
PROVIDERS: Emergency Medicine
DX: E11.65 Type 2 diabetes mellitus with hyperglycemia (principal); R19.7 Diarrhea, unspecified; R60.0 Localized edema; I13.0 Hypertensive heart and chronic kidney disease with heart failure and stage 1 through stage 4 chronic kidney disease, or unspecified chronic kidney disease; E11.22 Type 2 diabetes mellitus with diabetic chronic kidney disease; N18.2 Chronic kidney disease, stage 2 (mild); I50.32 Chronic diastolic (congestive) heart failure; G47.30 Sleep apnea, unspecified; E78.00 Pure hypercholesterolemia, unspecified; I48.91 Unspecified atrial fibrillation; J44.9 Chronic obstructive pulmonary disease, unspecified; K21.9 Gastro-esophageal reflux disease without esophagitis; M10.9 Gout, unspecified; Z88.8 Allergy status to other drugs, medicaments and biological substances; Z77.22 Contact with and (suspected) exposure to environmental tobacco smoke (acute) (chronic); Z79.4 Long term (current) use of insulin

== ENCOUNTER → 2018-09-15 | Outpatient (CLI) | payer OTHER ==
[~2018-09-15] MED LIST changes: +OMEGA 3; +SPIRONOLACTONE25 M1
== END ==
LOC: M.WC 02:50
DX: L03.115 Cellulitis of right lower limb (principal); E11.40 Type 2 diabetes mellitus with diabetic neuropathy, unspecified; E78.00 Pure hypercholesterolemia, unspecified; G47.30 Sleep apnea, unspecified; I11.0 Hypertensive heart disease with heart failure; I50.9 Heart failure, unspecified; I48.91 Unspecified atrial fibrillation; Z87.891 Personal history of nicotine dependence

== ENCOUNTER → 2018-09-22 | Outpatient (CLI) | payer OTHER | LOC: M.WC 04:40 | DX: E11.622 Type 2 diabetes mellitus with other skin ulcer (principal); L89.893 Pressure ulcer of other site, stage 3; L97.211 Non-pressure chronic ulcer of right calf limited to breakdown of skin; E11.40 Type 2 diabetes mellitus with diabetic neuropathy, unspecified; E78.00 Pure hypercholesterolemia, unspecified; G47.30 Sleep apnea, unspecified; I11.0 Hypertensive heart disease with heart failure; I50.9 Heart failure, unspecified; I48.91 Unspecified atrial fibrillation; Z87.891 Personal history of nicotine dependence ==

== ENCOUNTER → 2018-09-29 | Outpatient (CLI) | payer OTHER | LOC: M.WC 01:53 | DX: E11.622 Type 2 diabetes mellitus with other skin ulcer (principal); L97.211 Non-pressure chronic ulcer of right calf limited to breakdown of skin; E11.42 Type 2 diabetes mellitus with diabetic polyneuropathy; E78.00 Pure hypercholesterolemia, unspecified; G47.30 Sleep apnea, unspecified; I11.0 Hypertensive heart disease with heart failure; I50.9 Heart failure, unspecified; I48.91 Unspecified atrial fibrillation; Z87.891 Personal history of nicotine dependence ==

== ENCOUNTER → 2018-10-06 | Outpatient (CLI) | payer OTHER | LOC: M.WC 12:41 | DX: E11.622 Type 2 diabetes mellitus with other skin ulcer (principal); L97.211 Non-pressure chronic ulcer of right calf limited to breakdown of skin; E11.40 Type 2 diabetes mellitus with diabetic neuropathy, unspecified; E78.00 Pure hypercholesterolemia, unspecified; G47.30 Sleep apnea, unspecified; I11.0 Hypertensive heart disease with heart failure; I50.9 Heart failure, unspecified; I48.91 Unspecified atrial fibrillation; Z87.891 Personal history of nicotine dependence ==

== ENCOUNTER → 2018-10-13 | Outpatient (CLI) | payer OTHER | LOC: M.WC 12:58 | DX: T81.89XD Other complications of procedures, not elsewhere classified, subsequent encounter (principal); E11.40 Type 2 diabetes mellitus with diabetic neuropathy, unspecified; E11.622 Type 2 diabetes mellitus with other skin ulcer; L89.893 Pressure ulcer of other site, stage 3; L97.812 Non-pressure chronic ulcer of other part of right lower leg with fat layer exposed; G47.30 Sleep apnea, unspecified; I11.0 Hypertensive heart disease with heart failure; I50.9 Heart failure, unspecified; I48.91 Unspecified atrial fibrillation; E78.00 Pure hypercholesterolemia, unspecified; Z87.891 Personal history of nicotine dependence; Y83.8 Other surgical procedures as the cause of abnormal reaction of the patient, or of later complication, without mention of misadventure at the time of the procedure ==

== ENCOUNTER → 2018-11-03 | Outpatient (CLI) | payer OTHER | LOC: M.WC 10-27 04:56 | DX: E11.622 Type 2 diabetes mellitus with other skin ulcer (principal); L97.212 Non-pressure chronic ulcer of right calf with fat layer exposed; E11.40 Type 2 diabetes mellitus with diabetic neuropathy, unspecified; E78.00 Pure hypercholesterolemia, unspecified; G47.30 Sleep apnea, unspecified; I11.0 Hypertensive heart disease with heart failure; I50.9 Heart failure, unspecified; I48.91 Unspecified atrial fibrillation; Z87.891 Personal history of nicotine dependence ==

== ENCOUNTER → 2018-12-01 | Outpatient (CLI) | payer OTHER | LOC: M.WC 11-24 04:56 | DX: E11.622 Type 2 diabetes mellitus with other skin ulcer (principal); L97.211 Non-pressure chronic ulcer of right calf limited to breakdown of skin; E11.40 Type 2 diabetes mellitus with diabetic neuropathy, unspecified; E78.00 Pure hypercholesterolemia, unspecified; G47.30 Sleep apnea, unspecified; I11.0 Hypertensive heart disease with heart failure; I50.9 Heart failure, unspecified; I48.91 Unspecified atrial fibrillation; I87.2 Venous insufficiency (chronic) (peripheral); Z87.891 Personal history of nicotine dependence ==

== ENCOUNTER → 2018-12-08 | Outpatient (CLI) | payer OTHER | LOC: M.WC 04:37 | DX: E11.622 Type 2 diabetes mellitus with other skin ulcer (principal); L97.211 Non-pressure chronic ulcer of right calf limited to breakdown of skin; E11.40 Type 2 diabetes mellitus with diabetic neuropathy, unspecified; E78.00 Pure hypercholesterolemia, unspecified; G47.30 Sleep apnea, unspecified; I11.0 Hypertensive heart disease with heart failure; I50.9 Heart failure, unspecified; I48.91 Unspecified atrial fibrillation; Z87.891 Personal history of nicotine dependence ==

== ENCOUNTER → 2018-12-15 | Outpatient (CLI) | payer OTHER | LOC: M.WC 05:28 | DX: E11.622 Type 2 diabetes mellitus with other skin ulcer (principal); L97.211 Non-pressure chronic ulcer of right calf limited to breakdown of skin; E11.40 Type 2 diabetes mellitus with diabetic neuropathy, unspecified; E78.00 Pure hypercholesterolemia, unspecified; G47.30 Sleep apnea, unspecified; I11.0 Hypertensive heart disease with heart failure; I50.9 Heart failure, unspecified; I48.91 Unspecified atrial fibrillation; Z87.891 Personal history of nicotine dependence ==

== ENCOUNTER → 2018-12-22 | Outpatient (CLI) | payer OTHER | LOC: M.WC 04:52 | DX: E11.622 Type 2 diabetes mellitus with other skin ulcer (principal); L97.211 Non-pressure chronic ulcer of right calf limited to breakdown of skin; E11.42 Type 2 diabetes mellitus with diabetic polyneuropathy; E78.00 Pure hypercholesterolemia, unspecified; G47.30 Sleep apnea, unspecified; I11.0 Hypertensive heart disease with heart failure; I50.9 Heart failure, unspecified; I48.91 Unspecified atrial fibrillation; Z87.891 Personal history of nicotine dependence ==

== ENCOUNTER → 2018-12-29 | Outpatient (CLI) | payer OTHER | LOC: M.WC 04:14 | DX: E11.622 Type 2 diabetes mellitus with other skin ulcer (principal); L97.218 Non-pressure chronic ulcer of right calf with other specified severity; E78.00 Pure hypercholesterolemia, unspecified; E11.40 Type 2 diabetes mellitus with diabetic neuropathy, unspecified; G47.30 Sleep apnea, unspecified; I11.0 Hypertensive heart disease with heart failure; I50.9 Heart failure, unspecified; I48.91 Unspecified atrial fibrillation; Z87.891 Personal history of nicotine dependence ==

== ENCOUNTER 2020-06-11 10:36 | Inpatient (IN) | payer OTHER ==
[~2020-06-11] VITALS: Ht 175.3 cm; Wt 149.7 kg
[~2020-06-11 10:36] MED LIST changes: -SPIRONOLACTONE25 M1
[2020-06-11 10:41] VITALS: BP 154/96
[2020-06-11 11:09] LABS: ABSOLUTE EOSINOPHILS 0.1 thou/uL (0.0-0.7); ABSOLUTE LYMPHOCYTES 0.6 thou/uL (0.8-5.3); ABSOLUTE MONOCYTES 0.5 thou/uL (0.0-1.2); BASOPHILS 0.9 %; EOSINOPHILS 1.8 %; HEMATOCRIT 32.4 % (42.0-52.0); HEMOGLOBIN 10.9 gm/dL (14.0-18.0); LYMPHOCYTES 11.6 %; MCH 30.3 pg (26.0-34.0); MCHC 33.7 g/dL (28.0-37.0); MCV 89.8 fL (80.0-100.0); MONOCYTES 10.1 %; MPV 8.7 fl. (7.2-11.1); NUCLEATED RBCS 0 /100WBC; PLATELET COUNT* 158 thou/uL (150-400); POLYS 75.6 %; RBC 3.61 mil/uL (4.50-6.00); RDW-CV 16.6 % (10.5-14.5); WBC 5.3 thou/uL (4.0-11.0)
[2020-06-11 11:22] LABS: APTT 28.7 Seconds (25.0-31.3); CALCIUM 8.4 mg/dL (8.5-10.1); CREATININE 1.5 mg/dL (0.6-1.3); INR 1.2; POTASSIUM 4.1 mmol/L (3.5-5.1)
[2020-06-11 11:33] LABS: ALBUMIN 2.8 g/dL (3.4-5.0); TOTAL BILIRUBIN 0.4 mg/dL (<0.1-1.0); TOTAL PROTEIN 6.4 g/dL (6.4-8.2)
[2020-06-11 16:08] VITALS: BP 123/71
[2020-06-11 16:20] VITALS: BP 143/75
--- NOTE | 2020-06-11 18:40 | NUR ---
PT ADMITTED TO ROOM 212 FROM ED WITH HEART FAILURE. PT HAD BEEN WITHOUT MEDICATIONS FOR A MONTH AND FINALLY GOT THEM FILLED 06/05. PT ALSO REPORTS 20 PD INCREASE IN 2 WEEKS. PT STATES THAT SOA HAS INCREASED OVER PAST 1.5 WEEKS. PT IS AOX4. DENIES SOA AT THIS TIME ON 3L NC.PT WEARS 3L AT HOME AND USES CPAP O/N. PULSE DAVE AT 48. PT GIVEN LASIX IN ED AND NITRO PAST APPLIED TO CHEST. NITRO REMOVED. PT IS AFIB ON THE MONITOR. ASSESSMENT CHARTED.MEDS GIVEN PER EMAR. PT EDUCATED TO DIET, PLAN OF CARE,TREATMENTS, ACTIVITY AND USE OF CALL LIGHT. NOTHING FURTHER AT THIS TIME.CLWR.WCTM
[2020-06-11 21:09] VITALS: BP 150/81
[2020-06-12] VITALS: BP 127/67
[2020-06-12 04:00] VITALS: BP 141/69
[2020-06-12 04:40] LABS: ABSOLUTE EOSINOPHILS 0.1 thou/uL (0.0-0.7); ABSOLUTE LYMPHOCYTES 0.7 thou/uL (0.8-5.3); ABSOLUTE MONOCYTES 0.6 thou/uL (0.0-1.2); ABSOLUTE NEUTROPHILS 3.2 thou/uL (1.6-8.1); BASOPHILS 0.9 %; HEMATOCRIT 30.5 % (42.0-52.0); HEMOGLOBIN 10.3 gm/dL (14.0-18.0); LYMPHOCYTES 15.2 %; MCHC 33.9 g/dL (28.0-37.0); MCV 88.5 fL (80.0-100.0); MONOCYTES 13.6 %; MPV 9.4 fl. (7.2-11.1); NUCLEATED RBCS 0 /100WBC; PLATELET COUNT* 142 thou/uL (150-400); POLYS 68.3 %; RBC 3.45 mil/uL (4.50-6.00); RDW-CV 16.4 % (10.5-14.5); WBC 4.7 thou/uL (4.0-11.0)
[2020-06-12 04:59] LABS: CALCIUM 8.4 mg/dL (8.5-10.1); CREATININE 1.6 mg/dL (0.6-1.3); POTASSIUM 4.2 mmol/L (3.5-5.1)
--- NOTE | 2020-06-12 05:21 | NUR ---
PT IS ABLE TO COMMUNICATE HIS NEEDS TO STAFF EFFECTIVELY. HE HAS DENIED THE NEED FOR PAIN MEDICATION UP TO THIS TIME. HE HAS BEEN NPO SINCE MIDNIGHT FOR A CARDIOLOGY CONSULT TODAY. PT ENCOURAGED TO KEEP LEGS ELEVATED WHILE SLEEPING. PT WEARING HOME CPAP AT [facility] WHILE SLEEPING.
[2020-06-12 08:00] VITALS: BP 139/75
--- NOTE | 2020-06-12 10:49 | EKG ---
[place] [address] ELECTROCARDIOGRAM REPORT Name: KARL LAO Room: [address] ADM IN M.R.#: [id number] Admission: 06/11/20 Attend Phys: Lencho Weber, Discharge: Date of : 56 Date of Service: 06/11/20 1044 Report #: [id number] THIS REPORT FOR: //name// [facility] ED Test Date: 2020-06-11 Test Time: 10:44:05 Pat Name: KARL LAO Department: Room: [facility] Gender: M Director Of Food And Nutrition: CHENG : 1960 Requested By: Ector Mcintyre Order Number: [id number] MD: Adam Dash Measurements Intervals [place] Rate: 57 P: OR: QRS: 140 QRSD: 119 T: -71 QT: 478 QTc: 466 Interpretive Statements Atrial fibrillation IRBBB and LPFB Low voltage, extremity and precordial leads Baseline wander in lead(s) V2 Compared to ECG 09/09/2018 20:21:52 Low QRS voltage now present Early repolarization no longer present Possible ischemia no longer present Electronically Signed On 06-12-2020 10:48:52 CDT by Adam Dash [email or web address] <ELECTRONICALLY SIGNED> By: Adam Dash MD, [facility] 06/12/20 1048 1044 1044 Adam Dash MD, [facility] /EPI
--- NOTE | 2020-06-12 11:38 | NUR ---
VS CHARTED, A&OX4, NC@3L- BASELINE, AFIB ON TELE (CONTROLLED), ACCUCHECKS- BLOOD GLUCOSE WELL CONTROLLED, UP AD SOFIA, SEVERE CHF DUE TO PRESCRIPTIONS RAN OUT, HOURLY ROUNDING PERFORMED, POSSESSIONS AND CALL LIGHT WITHIN REACH
[2020-06-12 12:14] VITALS: BP 122/66
--- NOTE | 2020-06-12 13:23 | NUR ---
Pt is A&O. Resides at home alone, Pt states that his brothers are always there and able to assist if needed. Pt is active and independent. Pt wears home o2 continuous at 3L provided through [employer], Pt also has a cpap. No other DME. Hx of HH. No hx of SNF. Pt has a portable tank in his room for use at dc and has transportation home. Cardiology folloiwng. Anticipate dc in a few days. Following.
--- NOTE | 2020-06-12 13:32 | 2DMMODE ---
[place] [address] 2 D/M-MODE ECHOCARDIOGRAM Name: KARL LAO NANCY Room: [address] IN [facility]#: [id number] Admission: 06/11/20 Attend Phys: Lencho Weber, Discharge: Date of : 56 Date of Service: 06/12/20 1332 Report #: [id number] THIS REPORT FOR: cc: Abelardo Wheat,Luis Tom MD [facility] ~ APPROVED REPORT Study performed: 06/12/2020 10:15:30 EXAM: Comprehensive 2D, Doppler, and color-flow Echocardiogram Patient Location: In-Patient Room #: [facility] Status: routine BSA: 2.45 HR: 78 bpm BP: 139/75 mmHg Rhythm: Atrial Fibrillation Other Information Study Quality: Good Indications Dyspnea 2D Dimensions IVSd: 18.88 (7-11mm) LVOT Diam: 25.39 (18-24mm) LVDd: 45.76 mm PWd: 13.84 (7-11mm) Ascending Ao: 37.08 (22-36mm) LVDs: 37.34 (25-40mm) Aortic Root: 42.45 mm Volumes Left Atrial Volume (Systole) LA ESV Index: 47.20 mL/m2 Aortic Valve AoV Peak Toribio.: 1.42 m/s AO Peak Gr.: 8.04 mmHg LVOT Max P.39 mmHg AO Mean Gr.: 4.58 mmHg LVOT Mean P.41 mmHg LVOT Max V: 1.16 m/s AO V2 VTI: 24.05 cm LVOT Mean V: 0.71 m/s XAVIER (VTI): 4.31 cm2 LVOT V1 VTI: 20.46 [place] [address] 2 D/M-MODE ECHOCARDIOGRAM Name: KARL LAO Room: [address] IN [facility]#: [id number] Admission: 06/11/20 Attend Phys: Lencho Weber, Discharge: Date of : 56 Date of Service: 06/12/20 1332 Report #: [id number] Mitral Valve MV Decel. Time: 176.20 ms MV PHT: 51.10 ms MVA (PHT): 4.31 cm2 TDI Medial E' Toribio.: 0.10 m/s Lateral E' Toribio.: 0.11 m/s Tricuspid Valve RAP Estimate: 15.00 mmHg TR Peak Gr.: 36.55 mmHg RVSP: 51.00 mmHg PA Pressure: 51.00 mmHg Left Ventricle The left ventricle is normal size. There is normal LV segmental wall motion. Moderate concentric left ventricular hypertrophy. Left ventricular systolic function is normal. LVEF is 55-60%. This study is not technically sufficient to allow evaluation of the LV diastolic function due to atrial fibrillation. Right Ventricle Right ventricle is mildly dilated. The right ventricular systolic function is normal. Atria Left atrium is moderately dilated. Right atrium is moderately dilated. Aortic Valve Mild aortic valve sclerosis. Trace aortic regurgitation. There is no aortic valvular stenosis. Mitral Valve There is mitral annular calcification. Trace mitral regurgitation. No evidence of mitral valve stenosis. Tricuspid Valve The tricuspid valve is normal in structure. Trace tricuspid regurgitation. Moderate pulmonary hypertension. The RVSP is 50-55 mmHg. Pulmonic Valve The pulmonary valve is normal in structure. There is no pulmonic [place] [address] 2 D/M-MODE ECHOCARDIOGRAM Name: TASHIAKARL CRUZ Room: [address] IN ..#: [id number] Admission: 06/11/20 Attend Phys: Lencho Weber, Discharge: Date of : 56 Date of Service: 06/12/20 1332 Report #: [id number] Great Vessels The aortic root is normal in size. IVC is dilated and collapses <50% with inspiration. Pericardium There is no pericardial effusion. <Conclusion> The left ventricle is normal size. Moderate concentric left ventricular hypertrophy. Left ventricular systolic function is normal. LVEF is 55-60%. There is normal LV segmental wall motion. Left atrium is moderately dilated. Right atrium is moderately dilated. Right ventricle is mildly dilated. Mild aortic valve sclerosis. Trace aortic regurgitation. There is no aortic valvular stenosis. There is mitral annular calcification. Trace tricuspid regurgitation. Moderate pulmonary hypertension. The RVSP is 50-55 mmHg. IVC is dilated and collapses <50% with inspiration. <ELECTRONICALLY SIGNED> By: Luis Diaz MD, FACC 06/12/201331 31 31 Luis Diaz MD, FACC /INF
--- NOTE | 2020-06-12 14:04 | NUR ---
Nutrition: Pt admitted with heart failure. Consult for wt change. Per [employer], wt has been around 330-316# for multiple years - no apparent wt changes. Heart Healthy diet. H/o DM, CHF, OBE, MANPREET, noncompliance. On home O2. BG 194-143, alb 2.8, prealb 16.5. Meds: glimeperide, lisinopril, diuretics, fish oil, carvedilol. No nutrition interventions needed at this time. Consider Mild risk. GOALS: wt remain stable, >75% of meals consumed.
[2020-06-12 16:10] VITALS: BP 143/85
[2020-06-12 20:12] VITALS: BP 142/82
[2020-06-13 00:27] VITALS: BP 126/74
[2020-06-13 04:00] VITALS: BP 145/61
[2020-06-13 04:55] LABS: ABSOLUTE EOSINOPHILS 0.1 thou/uL (0.0-0.7); ABSOLUTE LYMPHOCYTES 0.8 thou/uL (0.8-5.3); ABSOLUTE MONOCYTES 0.7 thou/uL (0.0-1.2); ABSOLUTE NEUTROPHILS 3.3 thou/uL (1.6-8.1); BASOPHILS 0.9 %; HEMATOCRIT 30.9 % (42.0-52.0); HEMOGLOBIN 10.5 gm/dL (14.0-18.0); LYMPHOCYTES 16.7 %; MCH 29.7 pg (26.0-34.0); MCHC 33.9 g/dL (28.0-37.0); MCV 87.8 fL (80.0-100.0); MONOCYTES 14.3 %; MPV 8.8 fl. (7.2-11.1); NUCLEATED RBCS 0 /100WBC; PLATELET COUNT* 147 thou/uL (150-400); POLYS 66.1 %; RBC 3.52 mil/uL (4.50-6.00); RDW-CV 16.3 % (10.5-14.5); WBC 4.9 thou/uL (4.0-11.0)
[2020-06-13 05:17] LABS: ALBUMIN 2.7 g/dL (3.4-5.0); CALCIUM 8.7 mg/dL (8.5-10.1); CREATININE 1.5 mg/dL (0.6-1.3); POTASSIUM 4.1 mmol/L (3.5-5.1); TOTAL BILIRUBIN 0.6 mg/dL (<0.1-1.0); TOTAL PROTEIN 6.1 g/dL (6.4-8.2)
--- NOTE | 2020-06-13 05:37 | NUR ---
PT IS ABLE TO COMMUNICATE HIS NEEDS TO STAFF EFFECTIVELY. HE HAS DENIED THE NEED FOR PAIN MEDICATION UP TO THIS TIME. HE HAS BEEN ENCOURAGED TO KEEP IS LEGS ELEVATED TO HELP DIMINISH EDEMA.
[2020-06-13 08:00] VITALS: BP 155/92
--- NOTE | 2020-06-13 10:21 | CON ---
[address] [address] CONSULTATION Name: TASHIAKARLLEILANI CRUZ Room: [address] IN M.R.#: [id number] Admission: 06/11/20 Attend Phys: Lencho Weber MD Discharge: Date of : 56 Report #: [id number] THIS REPORT FOR: //name// cc: Abelardo Wheat Ahmad W. DO ~ THIS REPORT FOR: //name// CC: Abelardo Prakash DATE OF SERVICE: 06/11/2020 CARDIOLOGY CONSULTATION HISTORY OF PRESENT ILLNESS: The patient is a 59-year-old single white male who I was asked to see in the hospital today after he complained of being short of breath. The patient has an extensive past medical history. He has been followed by my partner, Dr. Luis Diaz. He has had multiple hospitalizations here at [facility] in the past. He has a history of morbid obesity, being 5 feet 6 inches, weighing 290 pounds. He has a history of chronic atrial fibrillation and has been chronically anticoagulated with Eliquis. He apparently attempted cardioversion in the past, but he remained in atrial fibrillation. He has a history of diastolic heart failure and has had high blood pressure that has been difficult to control. He has chronic kidney disease. Recently he ran out of all his medications. He just started taking these medications a couple of days ago. Recently, he has had increasing swelling. Denied chest pain, increased shortness of breath, fever or cough. PAST MEDICAL HISTORY: Otherwise, he has had surgery on his right leg and left finger after an accident. He has a history of diabetes, hypertension, sleep apnea, chronic kidney disease, chronic atrial fibrillation. Because of chronic edema, he has leg wrappings around his legs. MEDICATIONS: His current medications that he recently just resume taking include Lipitor, diltiazem, carvedilol, Eliquis, lisinopril, insulin, glimepiride, digoxin, Lasix, Celexa, Aldactone. ALLERGIES: HE HAS ALLERGY TO ADHESIVE TAPE. FAMILY HISTORY: Positive for heart disease. SOCIAL HISTORY: Single, lives in [place]. He is retired foundation worker. Quit smoking in 1995. [place] [address] CONSULTATION Name: KARL LAO Room: [address]#: [id number] Admission: 06/11/20 Attend Phys: Lencho Weber MD Discharge: Date of : 56 Report #: [id number] REVIEW OF SYSTEMS: He has sleep apnea, uses CPAP. He has COPD, uses inhaler. No liver disease. He has chronic kidney disease. No cancer. No psychiatric illness. He had a skin cancer removed in the past. PHYSICAL EXAMINATION: GENERAL: Revealed a middle-aged large male, lying in bed, appeared in no acute distress. VITAL SIGNS: He had a blood pressure 150/90, pulse of 60, he is afebrile. HEENT: He was anicteric. Conjunctivae pink. Mucous membranes moist. NECK: Veins cannot be assessed due to obesity. Neck supple. CHEST: Decreased breath sounds at bases. CARDIOVASCULAR: Irregular rhythm. No significant murmurs. ABDOMEN: Obese. EXTREMITIES: Had trace edema. SKIN: Cool and dry. NEUROLOGIC: Nonfocal. RADIOLOGICAL DATA: His ECG showed atrial fibrillation with nonspecific ST-segment changes. His echocardiogram in 2018 showed ejection fraction 60%, left ventricular hypertrophy, biatrial enlargement. His x-rays today, he had portable chest x-ray that showed cardiomegaly, otherwise clear lung palacios. LABORATORY DATA: Today, sodium 137, BUN 25, creatinine 1.5, it has been as high as 1.8 in the past. Glucose 174. His liver function studies are normal. His white blood cell count is 5.3, hematocrit 32.4, it has been as low as 27.6 in 2018. IMPRESSION AND RECOMMENDATIONS: 1. Chronic atrial fibrillation. Rate controlled with calcium cynthia and beta cynthia. I would continue chronic anticoagulation with Eliquis. 2. Diastolic heart failure. Recommend Lasix. 3. Hypertension. The patient is on a calcium cynthia and beta cynthia. 4. Diabetes. 5. Venous stasis. The patient wears leg wrappings. 6. Sleep apnea. The patient uses CPAP. 7. Chronic kidney disease. <ELECTRONICALLY SIGNED> By: Adam Dash MD, FACC 06/13/20 1021 1157 [id number] Dash MD, FACC /nt
--- NOTE | 2020-06-13 11:32 | NUR ---
RECIEVED REPORT AROUND 0715. ASSUMED CARE. VS AND ASSESSMENT. IV INTACT LEFT AC. HEART MONITOR ATTACHED AT AFIB. PT UP IN CHAIR THIS AM. PT HAS GENERALIZED EDEMA. WRAPPINGS ON LEGS. PT 3L NC. DENIED ANY PAIN. CONTINUING LASIX. CALL LIGHT WITHIN REACH. WILL CONTINUE TO MONITOR.
[2020-06-13 12:29] VITALS: BP 134/93
--- NOTE | 2020-06-13 14:55 | NUR ---
Pt may be medically stable to dc tomorrow. Has portable o2 tank in room.
[2020-06-13 16:14] VITALS: BP 144/86
--- NOTE | 2020-06-13 18:36 | NUR ---
PT HAD NO PAIN REPORTED THIS SHIFT. PT STAYED IN CHAIR THROUGHTOUT SHIFT. IV INTACT. RECIEVING IVP LASIX. MEDICATION PER DEC. PT AND OT WORKED WITH PT. NC AT 3L. HEART MONITOR ATTACHED AT AFIB/CONTROLLED. CALL LIGHT WITHIN REACH. WILL CONTINUE TO MONITOR.
[2020-06-13 20:00] VITALS: BP 153/81
[2020-06-14] VITALS: BP 142/71
[2020-06-14 04:00] VITALS: BP 139/69
[2020-06-14 04:35] LABS: ABSOLUTE EOSINOPHILS 0.1 thou/uL (0.0-0.7); ABSOLUTE LYMPHOCYTES 0.7 thou/uL (0.8-5.3); ABSOLUTE MONOCYTES 0.7 thou/uL (0.0-1.2); ABSOLUTE NEUTROPHILS 3.2 thou/uL (1.6-8.1); BASOPHILS 0.9 %; EOSINOPHILS 1.3 %; HEMATOCRIT 29.7 % (42.0-52.0); LYMPHOCYTES 14.4 %; MCH 29.4 pg (26.0-34.0); MCHC 33.6 g/dL (28.0-37.0); MCV 87.3 fL (80.0-100.0); MONOCYTES 14.4 %; MPV 9.2 fl. (7.2-11.1); NUCLEATED RBCS 0 /100WBC; PLATELET COUNT* 139 thou/uL (150-400); RDW-CV 16.2 % (10.5-14.5); WBC 4.7 thou/uL (4.0-11.0)
[2020-06-14 04:46] LABS: ALBUMIN 2.6 g/dL (3.4-5.0); CALCIUM 8.6 mg/dL (8.5-10.1); CREATININE 1.5 mg/dL (0.6-1.3); POTASSIUM 4.1 mmol/L (3.5-5.1); TOTAL BILIRUBIN 0.5 mg/dL (<0.1-1.0)
[2020-06-14 04:49] LABS: PREALBUMIN 17.9 mg/dL (18.0-35.7)
--- NOTE | 2020-06-14 07:05 | NUR ---
ASSUMED CARE OF PT AFTER REPORT AT 1930. PT A&OX4. VSS. PHYSICAL ASSESSMENT COMPLETED AND CHARTED. PT ON O2 AT 3L NC/CPAP AT HS. PT TRACING AFIB ON TELE. PT UPADLIB TO RESTROOM. PT DENIES ANY PAIN. PT ABLE TO SLEEP WELL ON BED. CALL LIGHT WITHINH REACH.
[2020-06-14 08:00] VITALS: BP 136/81
--- NOTE | 2020-06-14 11:07 | NUR ---
Cardiology continuing to follow. Possible dc to home tomorrow. Portable tank in room for dc.
[2020-06-14 12:02] VITALS: BP 153/79
[2020-06-14 16:13] VITALS: BP 137/79
--- NOTE | 2020-06-14 19:01 | NUR ---
PT. AOX4, VSS, DENIES PAIN, UAL TO BATHROOM, AMBULATES SAFELY. CALL LIGHT AND PERSONAL BELONGINGS PLACED WITHIN REACH. PT. SITTING IN CHAIR, WATCHING TV, IN NO APPARENT DISTRESS, AT THIS TIME.
[2020-06-14 19:45] VITALS: BP 161/93
[2020-06-15 04:00] VITALS: BP 157/95
--- NOTE | 2020-06-15 04:58 | NUR ---
PT AO X 4 SITTING IN CHAIR AT TIME OF ASSESSMENT. VSS PT ON 3L NC, LUNGS ARE DIMINISHED THROUGHOUT. PT COMPLAINS OF SORE RED BUMPS ON ABD THAT APPEARED TODAY, QUESTIONING IF IT WAS FROM DIURESIS. PT ABD IS ROUND,FIRM AND OBESE, PT STATES LAST BM WAS THURSDAY PT WAS NOT CONCERNED AND REFUSED OFFER OF COLACE. PT HAS HAD APPROX 4000 mL URINE OUTPUT THIS SHIFT, PT EDEMA IS 1+ IN ALL EXTREMITIES. WCTM
[2020-06-15 08:00] VITALS: BP 132/73
--- NOTE | 2020-06-15 08:00 | NUR ---
AM ASSESSMENT COMPLETE, DEFER TO COMPUTER CHARTING. LEVEL VIAL CURVATURE GAUGER TRACKING SA. ALERT ORIENTED. DENIES CHEST PAIN, DIZZINESS OR ANY DISCOMFORT. UP IN CHAIR. 02 ON 3L PER NC. CALL LIGHT WITHIN REACH. WILL MONITOR.
[2020-06-15 12:00] VITALS: BP 113/75
--- NOTE | 2020-06-15 12:46 | NUR ---
Anticipate dc to home tomorrow. No needs. Pt has portable o2 tank in room.
--- NOTE | 2020-06-15 13:52 | NUR ---
CHF DISCHARGE MEDICATION EDUCATION: PATIENT RECEIVED A [employer]ITON EDUCATION HANDOUT. THE MEDICATIONS CARVEDIOLOL, FUROSEMIDE, AND LISINOPRIL WERE DISCUSSED REGARDING HOW TO TAKE, SIDE EFFECTS, AND HOW IT WORKS. ALL QUESTIONS AND CONCERNS WERE ADDRESSED. THANK YOU.
[2020-06-15 18:34] VITALS: BP 160/89
--- NOTE | 2020-06-15 18:52 | NUR ---
CORPORATE TUTOR TRACKING WITH NO CHANGE IN RHYTHM. ASSESSMENT REMAINS UNCHANGED. LARGE AMT OF URINE OUTPUT DURING SHIFT, TOLERATING DIET. NO COMPLAINTS OF CHEST PAIN, DIZZINESS TO NURSING. UP IN CHAIR MOST OF SHIFT. CALL LIGHT REMAINS WITHIN REACH. WILL CONTINUE WITH PLAN OF CARE.
[2020-06-16] VITALS (7 sets, daily range): BP systolic 120–152; BP diastolic 71–86
[2020-06-16 05:11] LABS: ANION GAP < 0 mmol/L (7-16); BUN 32 mg/dL (7-18); CALCIUM 9.7 mg/dL (8.5-10.1); CHLORIDE 99 mmol/L (98-107); CO2 41 mmol/L (21-32); CREATININE 1.4 mg/dL (0.6-1.3); GLUCOSE 55 mg/dL (70-99); POTASSIUM 3.7 mmol/L (3.5-5.1); SODIUM 139 mmol/L (136-145)
--- NOTE | 2020-06-16 06:47 | NUR ---
PATIENT PROGRESSING TOWARDS GOALS: PATIENT HAD GOOD URINE OUTPUT THIS SHIFT. DENIES PAIN AND DISCOMFORT. HOPEFUL TO DC HOME TODAY. CALL LIGHT WITHIN REACH
--- NOTE | 2020-06-16 18:45 | NUR ---
RECEIVED REPORT. ASSUMED CARE OF PT AROUND 0730. PT A&O X4. AM ASSESSMENT AND VITALS COMPLETED CHARTED. MEDS PER EMAR. DERMATOLOGY PROCEDURAL PHYSICIAN IN PLACE. PT DENIED PAIN OR DISCOMFORT THIS SHIFT. DIURESIS CONTINUES - GOOD OUTPUT TODAY. PT SLEPT OFF AND ON. UP AD SOFIA TO THE BATHROOM - VOIDING IN URINAL. PT CURRENTLY RESTING IN BED. CALL LIGHT WITHIN REACH. HOURLY ROUNDING PERFORMED. LOW FALL RISK PRECAUTIONS IN PLACE.
[2020-06-17] VITALS: BP 135/74
[2020-06-17 04:00] VITALS: BP 116/56
--- NOTE | 2020-06-17 05:53 | NUR ---
RECEIVED REPORT AND ASSUMED CARE OF PATIENT AT 1900. FULL ASSESSMENT COMPLETED CHARTED. BED LOCKED AND IN LOW POSITION, CALL LIGHT AND PERSONAL ITEMS IN REACH. PT A&OX4, SPO2 96 ON 3L NC (WEARS 3L NC AT HOME), AFIB ON MONITOR, 1+ EDEMA ON ARMS, 2+ ON LEGS, ACCU CHECK, UP AD SOFIA, STRICT I&O MONITORED, DENIES PAIN.
[2020-06-17 06:19] LABS: CALCIUM 9.1 mg/dL (8.5-10.1); CREATININE 1.6 mg/dL (0.6-1.3); POTASSIUM 3.5 mmol/L (3.5-5.1)
[2020-06-17 13:03] VITALS: BP 127/79
[2020-06-17 16:00] VITALS: BP 115/67
[2020-06-17 20:00] VITALS: BP 146/91
[2020-06-18] VITALS: BP 113/60
--- NOTE | 2020-06-18 00:24 | NUR ---
PT ALERT ORIENTED. UP AD SOFIA IN ROOM. TELEMETRY SHOWS AFIB. O2 AT 3 LITERS NC CPAP DURING THE DAY. VOIDS PER URINAL. WCTM
[2020-06-18 04:00] VITALS: BP 159/64
[2020-06-18 05:04] LABS: CALCIUM 8.7 mg/dL (8.5-10.1); CREATININE 1.7 mg/dL (0.6-1.3); POTASSIUM 3.9 mmol/L (3.5-5.1)
[2020-06-18 08:00] VITALS: BP 126/72
[2020-06-18] MEDS ORDERED: LASIX 80 MG TAB80 MG PO (09:09)
[2020-06-18] MEDS ORDERED: FUROSEMIDE20 MG/2 ML PO (10:02)
[2020-06-18 10:52] VITALS: BP 126/72
--- NOTE | 2020-06-18 13:32 | NUR ---
RECEIVED REPORT. ASSUMED CARE OF PT AROUND 0730. PT A&O X4. AM ASSESSMENT AND VITALS COMPLETED CHARTED. STEAMFITTER SUPERVISOR IN PLACE. MEDS PER EMAR. DOCTORS ROUNDED - DISCAHRGE ORDERS RECEIVED. DISCHARGE COMPLETED DOCUMENTED. DISCHARGE SUMMARY GIVEN TO PT AND PT AWARE OF FOLLOW UP APPOINTMENTS. PT AWARE TO SHALE PLANER OPERATOR HELPER SCRIPT FROM THE PHARMACY. ALL BELONGINGS GATHERED AND SENT HOME WITH PT, INCLUDING MEDICATIONS THAT WERE WITH PHARMACY. IV AND STEAMFITTER SUPERVISOR REMOVED. PT LEFT UNIT IN WC WITH NURSING STAFF. PT LEFT HOSPITAL IN CAR WITH BROTHER.
== END 2020-06-18 13:30 | disposition home or self-care (01) | DRG 291 ==
LOC: M.ERS 10:36 → M.TBA-ER 12:27 → M.2W 12:27
PROVIDERS: Emergency Medicine Emergency Medical Services; Internal Medicine; Internal Medicine Cardiovascular Disease; ADMIT Internal Medicine; ATTEND Internal Medicine
PROC: 5A09357 Assistance with Respiratory Ventilation, Less than 24 Consecutive Hours, Continuous Positive Airway Pressure (ICD-10-PCS; principal; 2020-06-11)
PROC: 5A09357 Assistance with Respiratory Ventilation, Less than 24 Consecutive Hours, Continuous Positive Airway Pressure (ICD-10-PCS; 2020-06-12)
PROC: 5A09357 Assistance with Respiratory Ventilation, Less than 24 Consecutive Hours, Continuous Positive Airway Pressure (ICD-10-PCS; 2020-06-13)
PROC: 5A09357 Assistance with Respiratory Ventilation, Less than 24 Consecutive Hours, Continuous Positive Airway Pressure (ICD-10-PCS; 2020-06-14)
PROC: 5A09357 Assistance with Respiratory Ventilation, Less than 24 Consecutive Hours, Continuous Positive Airway Pressure (ICD-10-PCS; 2020-06-16)
PROC: 5A09357 Assistance with Respiratory Ventilation, Less than 24 Consecutive Hours, Continuous Positive Airway Pressure (ICD-10-PCS; 2020-06-17)
PROC: 5A09357 Assistance with Respiratory Ventilation, Less than 24 Consecutive Hours, Continuous Positive Airway Pressure (ICD-10-PCS; 2020-06-18)
DX: I13.0 Hypertensive heart and chronic kidney disease with heart failure and stage 1 through stage 4 chronic kidney disease, or unspecified chronic kidney disease (principal); I50.33 Acute on chronic diastolic (congestive) heart failure; J96.20 Acute and chronic respiratory failure, unspecified whether with hypoxia or hypercapnia; E66.2 Morbid (severe) obesity with alveolar hypoventilation; I48.20 Chronic atrial fibrillation, unspecified; E87.3 Alkalosis; Z68.42 Body mass index [BMI] 45.0-49.9, adult; E11.22 Type 2 diabetes mellitus with diabetic chronic kidney disease; E78.00 Pure hypercholesterolemia, unspecified; J44.9 Chronic obstructive pulmonary disease, unspecified; I89.0 Lymphedema, not elsewhere classified; F17.210 Nicotine dependence, cigarettes, uncomplicated; I87.8 Other specified disorders of veins; N18.2 Chronic kidney disease, stage 2 (mild); Z20.828 Contact with and (suspected) exposure to other viral communicable diseases; K21.9 Gastro-esophageal reflux disease without esophagitis; F32.9 Major depressive disorder, single episode, unspecified; M10.9 Gout, unspecified; Z79.899 Other long term (current) drug therapy; Z79.4 Long term (current) use of insulin; Z79.01 Long term (current) use of anticoagulants

== ENCOUNTER 2020-10-12 17:24 | Inpatient (IN) | payer OTHER ==
[~2020-10-12] VITALS: Ht 175.3 cm; Wt 113.4 kg
[~2020-10-12 17:24] MED LIST changes: +FUROSEMIDE20 MG/2 ML PO
[2020-10-12 17:34] VITALS: BP 159/65
[2020-10-12] MEDS ORDERED: DILTIAZEM ER180 M2 PO (17:43)
[2020-10-12 18:16] LABS: ABSOLUTE EOSINOPHILS 0.1 thou/uL (0.0-0.7); ABSOLUTE LYMPHOCYTES 0.6 thou/uL (0.8-5.3); ABSOLUTE MONOCYTES 0.7 thou/uL (0.0-1.2); ABSOLUTE NEUTROPHILS 3.6 thou/uL (1.6-8.1); BASOPHILS 0.7 %; EOSINOPHILS 2.7 %; HEMATOCRIT 31.6 % (42.0-52.0); HEMOGLOBIN 10.4 gm/dL (14.0-18.0); LYMPHOCYTES 11.2 %; MCH 29.5 pg (26.0-34.0); MCHC 32.9 g/dL (28.0-37.0); MCV 89.7 fL (80.0-100.0); MONOCYTES 13.6 %; MPV 8.8 fl. (7.2-11.1); NUCLEATED RBCS 0 /100WBC; PLATELET COUNT* 122 thou/uL (150-400); POLYS 71.8 %; RBC 3.52 mil/uL (4.50-6.00); RDW-CV 16.4 % (10.5-14.5)
[2020-10-12 18:21] LABS: CALCIUM 8.5 mg/dL (8.5-10.1); CREATININE 2.9 mg/dL (0.6-1.3); POTASSIUM 5.5 mmol/L (3.5-5.1)
[2020-10-12 18:32] LABS: ALBUMIN 2.8 g/dL (3.4-5.0); TOTAL BILIRUBIN 0.6 mg/dL (<0.1-1.0); TOTAL PROTEIN 6.7 g/dL (6.4-8.2)
[2020-10-12 20:24] LABS: APTT 26.2 Seconds (25.0-31.3); PROTIME 11.1 Seconds (9.20-11.50)
[2020-10-12 21:49] VITALS: BP 176/89
[2020-10-12 23:00] VITALS: BP 158/77
[2020-10-13] VITALS (7 sets, daily range): BP systolic 146–183; BP diastolic 56–89
[2020-10-13 00:24] LABS: URINE BILIRUBIN NEGATIVE (Negative); URINE BLOOD 3+ (Negative); URINE CLARITY CLEAR; URINE COLOR DARK YELLOW; URINE GLUCOSE-RANDOM NEGATIVE (Negative); URINE KETONES NEGATIVE (Negative); URINE LEUKOCYTES-REFLEX NEGATIVE (Negative); URINE NITRITE-REFLEX NEGATIVE (Negative); URINE PROTEIN 3+ (Negative); URINE SPECIFIC GRAVITY >= 1.030 (1.005-1.030)
[2020-10-13 00:35] LABS: SQUAMOUS 0-3 Few /LPF (0-3); URINE RBC >20 Many /HPF (0-2); URINE WBC-REFLEX >25 Many /HPF (0-5); WBC CLUMPS Few (None Seen)
[2020-10-13 00:36] LABS: BACTERIA-REFLEX >30 Many /HPF (None Seen); CELLULAR CASTS 4-10 Moderate /LPF (None Seen); COARSE GRANULAR CASTS 0-3 Few /LPF (None Seen); CRYSTALS None Seen /LPF (None Seen); FINE GRANULAR CASTS 4-10 Moderate /LPF (None Seen); HYALINE CASTS 4-10 Moderate /LPF (None Seen); MUCUS >6 Heavy strn/LPF (None Seen); RBC CASTS 0-3 /LPF; WBC CASTS 0-3 /LPF
[2020-10-13 04:25] LABS: HEMOGLOBIN 10.2 gm/dL (14.0-18.0); MCH 29.7 pg (26.0-34.0); MCHC 32.8 g/dL (28.0-37.0); MCV 90.6 fL (80.0-100.0); MPV 9.1 fl. (7.2-11.1); RBC 3.43 mil/uL (4.50-6.00); RDW-CV 16.2 % (10.5-14.5); WBC 5.5 thou/uL (4.0-11.0)
[2020-10-13 04:52] LABS: CALCIUM 8.5 mg/dL (8.5-10.1); CREATININE 3.2 mg/dL (0.6-1.3)
[2020-10-13 05:08] LABS: POTASSIUM 7.1 mmol/L (3.5-5.1)
--- NOTE | 2020-10-13 06:36 | NUR ---
RECEIVED REPORT FROM ED RN. PT A&OX4. VSS. NURSE INFORMATICS EDUCATOR IN PLACE. ADMISSION HISTORY & PHYSICAL ASSESSMENT COMPLETED AND CHARTED. PT ON O2 AT 2L NC/BIPAP/CPAP AT HS. PT TRACING AFIB DAVE HIGH 20'S-40'S. PT WITH BLISTER/CELLULITIS ON BLE-PHOTOGRAPH TAKEN. URINE SPECIMEN SENT TO LAB. PT UPADLIB TO RESTROOM. PT WITH CRITICAL POTASSIUM OF 7.1- MADE AWARE WITH NEW ORDERS. MAINATINED ON ISOLATION FOR PENDING COVID PCR. CALL LIGHT WITHIN REACH.
--- NOTE | 2020-10-13 11:56 | NUR ---
CM ATTEMPTED TO CONTACT THE PT VIA THE HOSPITAL ROOM PHONE AND PT'S LISTED CELL PHONE TO DISCUSS CM ASSESSMENT. NO ANSWER. CM WILL F/U WITH PT AT ANOTHER TIME.
--- NOTE | 2020-10-13 13:52 | EKG ---
[place] [address] ELECTROCARDIOGRAM REPORT Name: KARL LAO Room: [place] [address] ADM IN .R.#: [id number] Admission: 10/12/20 Attend Phys: Karen Restrepo MD Discharge: Date of : 56 Date of Service: 10/12/20 1743 Report #: [id number] THIS REPORT FOR: //name// [facility] ED Test Date: 2020-10-12 Test Time: 17:43:23 Pat Name: KARL LAO Department: Room: [facility] Gender: M Outside Sales Associate: : 1960 Requested By: Basilio Valles Order Number: [id number] MD: Benedict Vanessa Measurements Intervals Hansen Rate: 51 P: GA: QRS: 154 QRSD: 120 T: -85 QT: 388 QTc: 358 Interpretive Statements Atrial fibrillation IRBBB and LPFB Baseline wander in lead(s) V1 Compared to ECG 06/11/2020 10:44:05 No significant changes Electronically Signed On 10-13-2020 13:52:34 MANAGER TALENT MANAGEMENT by Benedict Vanessa [email or web address] <ELECTRONICALLY SIGNED> By: Willi Vanessa MD, [facility] 10/13/20 1352 1743 1743 Willi Vanessa MD, [facility] /EPI
--- NOTE | 2020-10-13 18:42 | NUR ---
PATIENT RESTING UP IN CHAIR. PATIENT IS UP AD SOFIA IN ROOM. PATIENT HAS OXYGEN ON AT 3L/NC. PATIENT HAS DENIES ANY TROUBLE BREATHING. PATIENT STARTED ON LASIX DRIP THIS AM. PATIENT HAS BRAXTON CATHETER. PATIENT HAD BOWEL MOVEMENTS X 3 TODAY. PATIENT HAS FAIR APPETITE. PATIENT DENIES ANY PAIN. PATIENT DENIES ANY NEEDS AT THIS TIME. CALL LIGHT WITHIN REACH.
[2020-10-14 04:09] VITALS: BP 151/79
[2020-10-14 04:17] LABS: ABSOLUTE EOSINOPHILS 0.1 thou/uL (0.0-0.7); ABSOLUTE LYMPHOCYTES 0.4 thou/uL (0.8-5.3); ABSOLUTE MONOCYTES 0.9 thou/uL (0.0-1.2); ABSOLUTE NEUTROPHILS 4.7 thou/uL (1.6-8.1); BASOPHILS 0.7 %; EOSINOPHILS 1.7 %; HEMATOCRIT 27.9 % (42.0-52.0); HEMOGLOBIN 9.6 gm/dL (14.0-18.0); LYMPHOCYTES 7.3 %; MCH 30.7 pg (26.0-34.0); MCHC 34.5 g/dL (28.0-37.0); MPV 9.3 fl. (7.2-11.1); NUCLEATED RBCS 0 /100WBC; PLATELET COUNT* 111 thou/uL (150-400); POLYS 76.3 %; RBC 3.13 mil/uL (4.50-6.00); RDW-CV 16.2 % (10.5-14.5); WBC 6.2 thou/uL (4.0-11.0)
[2020-10-14 04:33] LABS: CALCIUM 8.6 mg/dL (8.5-10.1); CREATININE 3.1 mg/dL (0.6-1.3); MAGNESIUM 2.5 mg/dL (1.8-2.4); POTASSIUM 4.7 mmol/L (3.5-5.1)
--- NOTE | 2020-10-14 07:37 | NUR ---
ASSUMED CARE OF PT AFTER REPORT AT 1930. PT A&OX4. VSS. PHYSICAL ASSESSMENT COMPLETED AND CHARTED. PT ON O2 AT 3L NC/CPAP. PT TRACING AFIB ON TELE. PT UPADLIB. MAINTAINED ON LASIX DRIP. PT WITH BRAXTON TO DEPENDENT DRAIN. PATIENT ABLE TO SLEEP WELL IN THE RECLINER.
[2020-10-14 09:00] VITALS: BP 143/66
--- NOTE | 2020-10-14 12:42 | CON ---
[address] [address] CONSULTATION Name: KARL LAO Room: [place] [address] ADM IN M.R.#: [id number] Admission: 10/12/20 Attend Phys: Karen Restrepo MD Discharge: Date of : 56 Report #: [id number] THIS REPORT FOR: cc: Abelardo Wheat Ahmad W. DO ~ Willi Vanessa MD [facility] CARDIOLOGY CONSULTATION HISTORY OF PRESENT ILLNESS: I was asked by Dr. Restrepo, the Emergency Room doctor to see this 60-year-old white male in Cardiology consultation for evaluation and treatment of acute on chronic diastolic congestive heart failure in the context of COVID-19 pneumonia. Additionally, this man has chronic atrial fibrillation. He has periods of bradycardia that are chronic with his atrial fibrillation. They tend to be asymptomatic. He also has essential hypertension, non-insulin dependent diabetes mellitus and hyperlipidemia. He was sick for several days at home with increasing shortness of breath and increasing edema. He has minor cough. He finally came to the Emergency Room, was found to have bibasilar infiltrates. He was COVID-19 positive. His BNP was only 2480. He is felt to have some degree of heart failure. He also has chronic kidney disease. He has had some periods of bradycardia, but his digoxin has been held, I believe his digoxin level was 2.3 and his carvedilol has been held and his heart rate has come up nicely into the 80s. He feels a little better today, but not dramatically. HOME MEDICINES: Include allopurinol 100 mg daily, Eliquis 5 mg b.i.d., atorvastatin 40 mg daily, carvedilol 12.5 mg b.i.d., citalopram 20 mg daily, digoxin 0.25 mg daily, diltiazem 180 mg daily, fish oil 1000 mg daily, Lasix 80 mg b.i.d., glimepiride 4 mg daily, p.r.n. sliding scale insulin, ipratropium and albuterol inhalers q.i.d., lisinopril 2.5 mg daily, Singulair 10 mg daily, pantoprazole 40 mg daily, potassium 20 mEq daily and spironolactone 25 mg daily. PAST MEDICAL HISTORY: Also remarkable for her COPD, GERD, MDD and gout. ALLERGIES: He is allergic to ADHESIVE TAPE. SOCIAL HISTORY: Currently, does not smoke, does not drink or use illegal drugs. FAMILY HISTORY: Noncontributory. REVIEW OF SYSTEMS: Negative for some 35 different complaints in 14 different system categories, except as per the history of present illness. Please see review of system form for details and negatives in review of systems. PHYSICAL EXAMINATION: GENERAL: He presents as an obese white [place] [address] CONSULTATION Name: KARL LAO Room: [place] [address] ADM IN M.R.#: [id number] Admission: 10/12/20 Attend Phys: Karen Restrepo MD Discharge: Date of : 56 Report #: [id number] VITAL SIGNS: His pulse was 70 and irregular, blood pressure is 146/57, respirations 24 and regular, temperature is 97.5. Note, he did have a temperature of 99.3 at 2300 last night. HEENT: His head was atraumatic. Eyes clear. NECK: Supple. There is no jugular venous distention or hepatojugular reflux. Thyroid is not enlarged. There is no adenopathy. SKIN: Warm and dry. LUNGS: Reveal decreased breath sounds diffusely in all lung palacios. There was increased expiratory phase. There were scattered dry crackles. HEART: Revealed normal first and second heart sound. There was no S4. There is no S3. The rhythm was irregularly irregular. There were no murmurs, rubs, thrills or heaves. PMI was not displaced. ABDOMEN: Obese, soft and nontender. There are no palpable masses, no organomegaly. EXTREMITIES: Reveal no cyanosis or clubbing. There was 2+ ankle and pedal edema. LABORATORY DATA: EKG showed atrial fibrillation with a slow ventricular response. Chest x-ray showed cardiomegaly with pulmonary venous congestion and patchy bilateral lower lobe pulmonary infiltrates consistent with either pneumonia or pulmonary edema. There were no pleural effusions. He did have an ultrasound of his right leg and there was no evidence for DVT in his right leg. IMPRESSION: 1. COVID-19 pneumonia. 2. Congestive heart failure, chronic diastolic type. 3. Chronic atrial fibrillation. 4. Bradycardia that is known to be chronic, likely related to his carvedilol as well as digoxin and perhaps the mild hyperkalemia that he had when he came in. His initial potassium was 5.5, I believe. In the morning it went up, but was rechecked and it was back down to 5.2, I believe. 5. Essential hypertension. 6. Non-insulin dependent diabetes mellitus. 7. Hyperlipidemia. 8. Chronic kidney disease. RECOMMENDATION: I would diurese him carefully and treat him for this COVID-2 pneumonia, might also require antibiotics in case he has a superinfection. He might benefit from steroids. I would be careful about over diuresing him and put him into renal failure. [address] [address] CONSULTATION Name: KARL LAO Room: [place] [address] ADM IN M.R.#: [id number] Admission: 10/12/20 Attend Phys: Karen Restrepo MD Discharge: Date of : 56 Report #: [id number] Thank you very much for asking me to see the patient. If there are any questions, please feel free to contact me. <ELECTRONICALLY SIGNED> By: Willi Vanessa MD, FACC 10/14/20 1242 1112 [id number]. Benedict Vanessa MD, FACC /nt
[2020-10-14 13:21] VITALS: BP 145/81
[2020-10-14 18:51] VITALS: BP 153/85
--- NOTE | 2020-10-14 19:23 | NUR ---
PT. AOX4, VSS, JORGE A PAIN, REFUSED SKIN CARE TO BLE, ENCOURAGED PT TO KEEP BLE ELEVATED. CALL LIGHT AND PERSONAL BELONGINGS PLACED WITHIN REACH. COVID PCR PENDING. PT. IN CHAIR, IN STABLE CONDITION AT SHIFT CHANGE
[2020-10-14 20:00] VITALS: BP 156/78
[2020-10-15] VITALS: BP 164/81
[2020-10-15 04:00] VITALS: BP 163/84
[2020-10-15 04:13] LABS: ABSOLUTE EOSINOPHILS 0.1 thou/uL (0.0-0.7); ABSOLUTE LYMPHOCYTES 0.8 thou/uL (0.8-5.3); ABSOLUTE MONOCYTES 0.8 thou/uL (0.0-1.2); ABSOLUTE NEUTROPHILS 3.1 thou/uL (1.6-8.1); BASOPHILS 0.5 %; EOSINOPHILS 2.9 %; HEMATOCRIT 26.8 % (42.0-52.0); HEMOGLOBIN 9.2 gm/dL (14.0-18.0); LYMPHOCYTES 16.2 %; MCH 30.3 pg (26.0-34.0); MCHC 34.2 g/dL (28.0-37.0); MCV 88.5 fL (80.0-100.0); MONOCYTES 16.9 %; NUCLEATED RBCS 0 /100WBC; PLATELET COUNT* 112 thou/uL (150-400); POLYS 63.5 %; RBC 3.03 mil/uL (4.50-6.00); RDW-CV 16.2 % (10.5-14.5); WBC 4.8 thou/uL (4.0-11.0)
[2020-10-15 04:46] LABS: ALBUMIN 2.6 g/dL (3.4-5.0); CALCIUM 8.4 mg/dL (8.5-10.1); CREATININE 3.2 mg/dL (0.6-1.3); POTASSIUM 4.3 mmol/L (3.5-5.1); TOTAL BILIRUBIN 0.5 mg/dL (<0.1-1.0); TOTAL PROTEIN 6.3 g/dL (6.4-8.2)
--- NOTE | 2020-10-15 07:05 | NUR ---
CHANGE OF SHIFT REPORT GIVEN PATIENT SEEN AT BEDSIDE, UP IN CHAIR ASSUMED PATIENT CARE
--- NOTE | 2020-10-15 07:16 | NUR ---
Alert and oriented x 4. He is up in his recliner and has O2 at 3L n/c and spap at night. Bilat legs wrapped in acewraps. He has a goldsmith cath and urine is dark,tea colored. He denies pain. Monitor is Afib but it is chronic. He has been in 60-70's. Lung sounds diminished. He slepy in the chair.
[2020-10-15 08:00] VITALS: BP 168/90
--- NOTE | 2020-10-15 09:53 | NUR ---
CM SPOKE TO THE PT TO DISCUSS CM ASSESSMENT. PT A&O, NORMALLY INDEPENDENT WITH ADL'S, AND ACTIVE. PT USES HOME OXYGEN AT 3L PROVIDED BY [facility]. PT ALSO USES CPAP A REST, AND USES HOME NEBULIZER MACHINE. PT HAS PAS HX OF HH. PT HAS 0 HX OF SNF. CM WILL REMAIN AVAILABLE TO ASSIST AND FOLLOW NEEDED.
[2020-10-15 12:23] VITALS: BP 155/87
[2020-10-15 16:56] VITALS: BP 167/92
[2020-10-15 20:30] VITALS: BP 147/98
[2020-10-16] VITALS: BP 154/74
[2020-10-16 04:00] VITALS: BP 135/92
[2020-10-16 04:24] LABS: HEMOGLOBIN 9.1 gm/dL (14.0-18.0); MCH 29.7 pg (26.0-34.0); MCHC 33.6 g/dL (28.0-37.0); MCV 88.3 fL (80.0-100.0); MPV 9.4 fl. (7.2-11.1); RBC 3.06 mil/uL (4.50-6.00); RDW-CV 16.3 % (10.5-14.5); WBC 5.2 thou/uL (4.0-11.0)
[2020-10-16 04:42] LABS: ALBUMIN 2.5 g/dL (3.4-5.0); CALCIUM 8.3 mg/dL (8.5-10.1); CREATININE 3.5 mg/dL (0.6-1.3); MAGNESIUM 2.5 mg/dL (1.8-2.4); POTASSIUM 4.5 mmol/L (3.5-5.1); TOTAL BILIRUBIN 0.5 mg/dL (<0.1-1.0); TOTAL PROTEIN 6.4 g/dL (6.4-8.2)
--- NOTE | 2020-10-16 04:44 | NUR ---
ASSUMED PATEINT CARE AT 1900. PATIENT ALERT AND ORIENTED TOMES FOUR. UP IN RECLINER WHICH IS WHERE HE PREFERS TO BE ABD TO SLEEP. COMPLIANT WITH ALL CARES. MAINTAING O2 LEVELS AT HOME DOSE OF 02, 3L VIA NC. NO COMPLAINTS OF PAIN OR DISCOMFORT NOTED. BRAXTON IN PLACE TO DEPENDENT DRAINAGE. MAINTAINING STRICT I&O. PATIENT VERBALIZES UNDERSTANDING OF FLUID RESTRICTION. SECOND VP HR ASSESSMENT AND HOURLY ROUNDING COMPLETED CHARTED.
[2020-10-16 04:45] LABS: CALCIUM 8.7 mg/dL (8.5-10.1); CREATININE 3.3 mg/dL (0.6-1.3); POTASSIUM 4.6 mmol/L (3.5-5.1)
--- NOTE | 2020-10-16 11:36 | NUR ---
CM INFORMED DURING PRIME ROUNDING OF THE PLAN OF CARE FOR THE PT. CARDIOLOGY AND NEPHROLOGY CONSULTS PENDING. PLAN FOR PT TO POSSIBLY D/C HOME TOMORROW. NO CM D/C PLANNING NEEDS ANTICIPATED PT USES 3L O2 AT BASELINE AT HOME AND PT HAS DECLINED HH. CM WILL REMAIN AVAILABLE TO ASSIST AND FOLLOW FOR D/C PLANNING.
[2020-10-16 13:10] VITALS: BP 155/74
--- NOTE | 2020-10-16 13:59 | NUR ---
WOUND NURSE: PATIENT SEEN TO ADDRESS BULLAE ON BLE. RIGHT LOWER EXTREMITY PRESENTS WITH MULTIPLE SMALL SHALLOW WOUNDS IN A 10 X 14 CM AREA. DEPTH 0.2 CM. WOUND BEDS WITH RED NONGRANULATING TISSUE AND WEEPING SEROUS DRAINAGE IN LARGE AMOUNTS. LEFT LOWER EXTREMITIE WITH 1.0 X 1.0 X 0.1 CM RUPTURED BULLA DRAINED SMALL AMOUNT OF SEROUS DRAINAGE. PATIENT WITH 3 TO 4 PLUS PITTING EDEMA BLE FROM TOES TO ABOVE KNEES. THE RIGHT LOWER LEG IS REDDENED AND WARM TO TOUCH. EDEMA EXTENDS AND INCLUDES TOES TO ABOVE BOTH KNEES. PATIENT WITH CHF PER HIS NURSE. ALSO RECEIVING O2 PER NC. HE IS ALERT AND ORIENTED. PATIENT IS ON A REGULAR MATTRESS. PATIENT ALSO WITH SMALL STAGE 1 PRESSURE INJURY ON LT BUTTOCK WHICH IS RED AND NONBLANCHEABLE. PATIENT INSTRUCTED ON NEED TO ELEVATE BLE TO CONTROL EDEMA AND USE OF COMPRESSON. ALSO INSTRUCTED TO OFFLOAD BUTTOCKS BY REPOSITIONING HIMSELF FREQUENTLY. PATIENT ALSO INSTRUCTED ON LOW SALT DIET AND FOLLOWING ANY FLUID RESTRICTIONS IF PRESCRIBED. PATIENT STATES HE UNDERSTANDS.
[2020-10-16 16:59] VITALS: BP 143/84
[2020-10-16 20:00] VITALS: BP 152/77
[2020-10-17] VITALS: BP 156/82
[2020-10-17 04:00] VITALS: BP 142/87
[2020-10-17 05:20] LABS: CALCIUM 8.6 mg/dL (8.5-10.1); CREATININE 3.3 mg/dL (0.6-1.3); POTASSIUM 4.4 mmol/L (3.5-5.1)
--- NOTE | 2020-10-17 05:25 | NUR ---
BRAXTON REMOVED FROM PATIENT
[2020-10-17 08:00] VITALS: BP 128/74
--- NOTE | 2020-10-17 11:20 | NUR ---
CM INFORMED DURING PRIME ROUNDING OF THE PLAN OF CARE FOR THE PT. PT WILL NEED ADDITIONAL DIURESIS. CARDIOLOGY AND NEPHROLOGY CONSULTS PENDING. CM WILL REMAIN AVAILABLE TO ASSIST AND FOLLOW NEEDED.
[2020-10-17 12:00] VITALS: BP 135/69
--- NOTE | 2020-10-17 14:02 | NUR ---
PATIENT IS ALERT AND ORIENTED X 4. HE DENIES PAIN. PATIENT HAS BEEN UP IN THE RECLINER ALL SHIFT. HE HAS ONLY VOIDED 1 TIME TODAY. HE CONTINUES ON FLUID RESTRICTION. PATIENT HAS 3+ GENERALIZED EDEMA. TELE SHOWS CONTINUED AFIB. WILL CONTINUE TO MONITOR.
[2020-10-17 16:00] VITALS: BP 152/96
[2020-10-18] VITALS: BP 146/78
--- NOTE | 2020-10-18 02:31 | NUR ---
ASSUMED CARE OF PT AT 1900. PT IS ALERT AND ORIENTED. VSS. PERRLA. NO COMPLAINTS OF PAIN. PT IS VERY EDEMPTUAS ALL OVER. PT IS IN A FIB ON THE TELEMETRY. PT IS RESTING COMFORTABLY IN BED. RESPIRATIONS ARE EVEN AND NONLABORED. WILL CONTINUE TO MONITOR PT.
[2020-10-18 04:00] VITALS: BP 150/74
[2020-10-18 05:57] LABS: CALCIUM 8.7 mg/dL (8.5-10.1); CREATININE 3.2 mg/dL (0.6-1.3); POTASSIUM 4.5 mmol/L (3.5-5.1)
--- NOTE | 2020-10-18 08:34 | CON ---
[address] [address] CONSULTATION Name: KARL LAO Room: [address] IN M.R.#: [id number] Admission: 10/12/20 Attend Phys: Karen Restrepo MD Discharge: Date of : 56 Report #: [id number] THIS REPORT FOR: cc: Abelardo Wheat Ahmad W. DO ~ Tiffani Baxter MD DATE OF SERVICE: 10/13/2020 NEPHROLOGY CONSULTATION CONSULTING PHYSICIAN: Dr. Restrepo. REASON FOR NEPHROLOGY CONSULTATION: Acute kidney injury as well as hyperkalemia. REASON FOR ADMISSION: Shortness of breath. HISTORY OF PRESENT ILLNESS: This is a 60-year-old male with history of atrial fibrillation, hypertension, dyslipidemia, chronic diastolic congestive heart failure, chronic kidney disease stage 3B, baseline creatinine of 1.6-1.7, type 2 diabetes, came in with lower extremity edema going on for the past 3 days. He also hit his right leg somewhere against some wood and it has been weeping. He also was quite short of breath and chest x-ray is consistent with fluid overload. He does use CPAP at home. He cut down his Lasix to once a day couple of days ago because he noticed some blood in his urine. His creatinine was found to be 2.9 yesterday on admission where his baseline is 1.6-1.7 and creatinine has gone up to 3.2 today and potassium was 5.5 yesterday and has gone up to 7.1 today. In addition to other medications, he takes potassium supplementation, Lasix, lisinopril, spironolactone, digoxin at home. His digoxin level was also toxic, it is 2.3. Cardiology has also been consulted for him. Currently, he is very short of breath. He did get Lasix in the ER last night. He says he has not peed anything this morning and no urine output has been recorded in the computer. ALLERGIES: ADHESIVE TAPE. REVIEW OF SYSTEMS: As mentioned in history of present illness: The patient is quite a lot of distress with tachypnea, not able to give detailed review of systems. FAMILY HISTORY: Heart disease. SOCIAL HISTORY: Does not use, tobacco, or alcohol use [place] [address] CONSULTATION Name: KARL LAO Room: [address] IN [facility].#: [id number] Admission: 10/12/20 Attend Phys: Karen Restrepo MD Discharge: Date of : 56 Report #: [id number] PAST MEDICAL AND SURGICAL HISTORY: Includes diabetes type 2, hypertension, chronic kidney disease stage 3B, baseline creatinine is 1.6-1.7, chronic diastolic congestive heart failure, ejection fraction 50% to 55% with RVSP of 50 mmHg. This was back in June of this year with diastolic dysfunction, right shoulder surgery, left index finger surgery, sleep apnea, hypercholesterolemia, chronic diastolic congestive heart failure, cardiomegaly, atrial fibrillation, COPD, GERD, manic depressive disorder, gout. HOME MEDICATIONS: Include furosemide 80 mg twice a day, atorvastatin, Protonix, montelukast, carvedilol, Eliquis, allopurinol, lisinopril 2.5 mg a day, insulin NovoLog, fish oil, glimepiride, digoxin 250 mcg once a day, albuterol and ipratropium, potassium chloride 20 mEq once a day, spironolactone 25 mg once a day, citalopram, diltiazem. PHYSICAL EXAMINATION: VITAL SIGNS: Blood pressure is 146/56, temperature 36.4, pulse rate is 42, respiratory rate is 24, and pulse ox is 98% on BiPAP 1 liter of oxygen. HEAD AND EYES: Atraumatic, normocephalic. Morbidly obese. Conjunctivae normal. EARS, NOSE, AND THROAT: Normal ears and nose. Mucous membranes are moist. NECK: JVD difficult to assess. He has a BiPAP in place. CHEST: Bilateral diminished breath sounds posteriorly. CARDIOVASCULAR: S1, S2 normal. No murmurs are noted. ABDOMEN: Obese, soft, nondistended. Presacral edema 2+. GENITOURINARY: No CVA tenderness. LOWER EXTREMITIES: 3+ edema with weeping, lower extremities, especially right side and tenderness. NEUROLOGICAL FUNCTION: Grossly internal. PSYCHIATRIC: Mood and affect seems to be normal. LABORATORY DATA: WBC is 5.5, hemoglobin 10.2, platelet count is 120. Potassium was 7.1, sodium was 138, BUN was 72, creatinine was 3.2, which is up from 2.9. Potassium was 5.5 last night. Other labs were reviewed. IMAGING: Venous Doppler study and chest x-ray were reviewed. ASSESSMENT: 1. Acute kidney injury on top of chronic kidney disease stage 3B, baseline creatinine is 1.6-1.7. He presents with a creatinine of 2.9. This is in the setting of fluid overload, likely renal venous congestion. He is on multiple diuretics at home including lisinopril, spironolactone. He is on multiple diuretics at home including Lasix, spironolactone. He also takes lisinopril at home. UA was reviewed. He does have evidence of 3+ blood with 3+ protein with hyaline casts as well as granular casts. Renal imaging will be done. [address] [address] CONSULTATION Name: KARL LAO NANCY Room: [address] ADM IN .R.#: [id number] Admission: 10/12/20 Attend Phys: Karen Restrepo MD Discharge: Date of : 56 Report #: [id number] 2. Hyperkalemia in the setting of digoxin toxicity, potassium 5.5 on admission, has gone up to 7.1 and he is bradycardic. He is on lisinopril and spironolactone, potassium chloride supplementation as well at home. 3. Chronic diastolic congestive heart failure with acute exacerbation. 4. Atrial fibrillation, currently bradycardic. Cardiology has been consulted. 5. Digoxin toxicity. Digoxin level is 2.3. 6. Cellulitis, bilateral lower extremities, especially right leg. Antibiotic treatment as per primary team. 7. Diabetes type 2. Treatment as per primary team. 8. Venous stasis. PLAN: 1. Treatment for his lower extremity cellulitis is as per primary team. 2. His potassium has gone up to 7.1. His digoxin is in toxic range 2.3, he will benefit from Digibind which I have ordered through pharmacy. 3. Giving him Kayexalate, also ordered Veltassa. He also received Lasix. I am not sure if he was urinating or not. Flor catheter will be placed stat. If he is not making any urine, he is going to need dialysis today to help with fluid overload as well as with hyperkalemia. 4. Ordered Lasix drip for him after a bolus dose of Lasix 80 mg. 5. We will order renal ultrasound for him as well. 6. Although he is bradycardic in the setting of digoxin toxicity, would refrain from giving him calcium gluconate. 7. We will wait for Cardiology evaluation as well. 8. I have stopped the order for IV fluids. He has not received any IV fluids yet. Thank you for this consultation. We will continue to follow with you. Discussed with the patient's hospitalist, Dr. Restrepo as well as the patient's nurse this morning. He is critically ill. I spent 45 minutes in critical care, the time was spent in chart review, placing orders and care coordination. We will continue to follow with you. <ELECTRONICALLY SIGNED> By: Tiffani Baxter MD 10/18/20 0834 0717 [id number] Baxter MD /nt
[2020-10-18 09:00] VITALS: BP 132/69
[2020-10-18 09:01] VITALS: BP 150/74
[2020-10-18 12:00] VITALS: BP 127/82
--- NOTE | 2020-10-18 13:51 | 2DMMODE ---
[place] [address] 2 D/M-MODE ECHOCARDIOGRAM Name: KARL LAO Room: [address] IN [facility]#: [id number] Admission: 10/12/20 Attend Phys: Karen Restrepo MD Discharge: Date of : 56 Date of Service: 10/18/20 1350 Report #: [id number] THIS REPORT FOR: cc: Abelardo Wheat Ahmad W. DO Liston, Michael J. MD [facility] ~ APPROVED REPORT Study performed: 10/18/2020 10:28:57 EXAM: Comprehensive 2D, Doppler, and color-flow Echocardiogram Patient Location: In-Patient Room #: 230 Status: routine BSA: 2.59 HR: 102 bpm BP: 150/74 mmHg Rhythm: NSR Other Information Study Quality: Adequate Indications Atrial Fibrillation edema, bradycardia 2D Dimensions IVSd: 17.05 (7-11mm) LVOT Diam: 22.48 (18-24mm) LVDd: 43.97 mm PWd: 14.85 (7-11mm) Ascending Ao: 39.10 (22-36mm) LVDs: 29.35 (25-40mm) Aortic Root: 41.63 mm Volumes Left Atrial Volume (Systole) LA ESV Index: 53.60 mL/m2 Aortic Valve AoV Peak Toribio.: 1.43 m/s AO Peak Gr.: 8.18 mmHg LVOT Max P.52 mmHg AO Mean Gr.: 4.52 mmHg LVOT Mean P.80 mmHg LVOT Max V: 1.17 m/s AO V2 VTI: 26.11 cm LVOT Mean V: 0.78 m/s XAVIER (VTI): 3.08 cm2 LVOT V1 VTI: 20.22 [place] [address] 2 D/M-MODE ECHOCARDIOGRAM Name: KARL LAO Room: [address] IN ..#: [id number] Admission: 10/12/20 Attend Phys: Karen Restrepo MD Discharge: Date of : 56 Date of Service: 10/18/20 1350 Report #: [id number] TDI Medial E' Toribio.: 0.12 m/s Lateral E' Toribio.: 0.11 m/s Pulmonary Valve PV Peak Toribio.: 0.91 m/s PV Peak Gr.: 3.33 mmHg Tricuspid Valve RAP Estimate: 5.00 mmHg TR Peak Gr.: 41.80 mmHg RVSP: 46.00 mmHg PA Pressure: 46.00 mmHg Left Ventricle The left ventricle is normal size. There is normal LV segmental wall motion. Moderate concentric left ventricular hypertrophy. Left ventricular systolic function is normal. LVEF is 55-60%. Transmitral Doppler flow pattern suggests restrictive physiology. Right Ventricle Right ventricle is mildly dilated. The right ventricular systolic function is normal. Atria Left atrium is moderately dilated. Right atrium is mildly dilated. Aortic Valve Mild aortic valve sclerosis. No aortic regurgitation is present. There is no aortic valvular stenosis. Mitral Valve There is mitral annular calcification. Mild mitral regurgitation. No evidence of mitral valve stenosis. Tricuspid Valve The tricuspid valve is normal in structure. Trace tricuspid regurgitation. Moderate pulmonary hypertension. The RVSP is 50-55 mmHg. Pulmonic Valve The pulmonary valve is normal in structure. Mild pulmonic regurgitation. Great Vessels The aortic root is normal in size. IVC is [place] [address] 2 D/M-MODE ECHOCARDIOGRAM Name: KARL LAO Room: [address] IN .R.#: [id number] Admission: 10/12/20 Attend Phys: Karen Restrepo MD Discharge: Date of : 56 Date of Service: 10/18/20 1350 Report #: [id number] collapses >50% with inspiration. Pericardium There is no pericardial effusion. <Conclusion> The left ventricle is normal size. Moderate concentric left ventricular hypertrophy. Left ventricular systolic function is normal. LVEF is 55-60%. Transmitral Doppler flow pattern suggests restrictive physiology. Left atrium is moderately dilated. Right atrium is mildly dilated. Right ventricle is mildly dilated. Mild aortic valve sclerosis. There is no aortic valvular stenosis. Mild mitral regurgitation. Trace tricuspid regurgitation. Moderate pulmonary hypertension. The RVSP is 50-55 mmHg. IVC is normal in size and collapses >50% with inspiration. <ELECTRONICALLY SIGNED> By: Luis Diaz MD, FACC 10/18/20 1350 1350 1350 Luis Diaz MD, FACC /INF
--- NOTE | 2020-10-18 15:09 | NUR ---
CM INFORMED DURING PRIME ROUNDING OF THE PLAN OF CARE FOR THE PT. PLAN FOR PT TO HAVE TEMPORARY DIALYSIS CATH PLACED TODAY, AND PT WILL HAVE DIALYSIS TODAY. PT IS FROM HOME AND USUALLY USES 3L O2 AT BASELINE, CPAP AND HOME NEBULIZER. D/C PLANNING NEEDS ARE TBD AT THIS TIME. PT HAD INITIALLY DECLINED HH, BUT MAY NEED IT AT D/C. CM WILL REMAIN AVAILABLE TO ASSIST AND FOLLOW NEEDED.
--- NOTE | 2020-10-18 19:59 | NUR ---
I ASSUMED CARE OF THE PATIENT AT 0700. HE IS ALERT AND ORIENTED X4 AND IS UP WITH SBA. BED IS IN THE LOW LOCKED POSITION AND CALL LIGHT IS IN REACH. HOURLY ROUNDING IS COMPLETED AND PATIENT NEEDS ARE MET. PAIN IS DENIED. AFTER BLADDER SCANNING, A BRAXTON WAS PLACED AND 650 WAS REMOVED. BLOOD GLUCOSE WAS MONITORED. PATIENT CONSENT WAS RECEIVED AND HE HAS A NEW RIGHT IJ TEMPORARY DIALYSIS LINE THAT IS PACKED AND WAS USED TODAY TO REMOVE 1 LITER. HE WILL HAVE DIALYSIS AGAIN THE NEXT FEW DAYS. NEW LABS WERE DRAWN AND RESULTS ARE PENDING. HIS A.FIB IS CONTROLLED AND HE IS MONITORED. EDEMA IS BEING ADDRESSED WITH LEG WRAPS, ELEVATION, LASIX, FLUID RESTRICTIONS, ETC. ECHO WAS REPEATED TODAY WELL. WILL CONTINUE TO MONITOR.
[2020-10-18 20:00] VITALS: BP 108/75
[2020-10-19] VITALS: BP 122/80
[2020-10-19 02:06] LABS: HEPATITIS B SURFACE AG Negative (Negative)
[2020-10-19 04:00] VITALS: BP 142/75
[2020-10-19 05:05] LABS: ABSOLUTE EOSINOPHILS 0.2 thou/uL (0.0-0.7); ABSOLUTE LYMPHOCYTES 0.4 thou/uL (0.8-5.3); ABSOLUTE MONOCYTES 0.7 thou/uL (0.0-1.2); ABSOLUTE NEUTROPHILS 3.6 thou/uL (1.6-8.1); BASOPHILS 0.7 %; EOSINOPHILS 3.8 %; HEMATOCRIT 26.7 % (42.0-52.0); HEMOGLOBIN 8.9 gm/dL (14.0-18.0); LYMPHOCYTES 8.6 %; MCH 29.6 pg (26.0-34.0); MCHC 33.3 g/dL (28.0-37.0); MCV 88.9 fL (80.0-100.0); MONOCYTES 14.8 %; MPV 9.2 fl. (7.2-11.1); NUCLEATED RBCS 0 /100WBC; PLATELET COUNT* 116 thou/uL (150-400); POLYS 72.1 %; RDW-CV 16.5 % (10.5-14.5)
[2020-10-19 05:17] LABS: CALCIUM 8.6 mg/dL (8.5-10.1); CREATININE 2.7 mg/dL (0.6-1.3); MAGNESIUM 2.6 mg/dL (1.8-2.4)
--- NOTE | 2020-10-19 06:47 | NUR ---
ASSUMED PT CARE AT APPROX 1930. PT IS AWAKE AND ORIENTED X4. PT IS NOT IN DISTRESS. PT IS TRACING AFIB-RATE CONTROLLED ON THE STREET PHOTOGRAPHER. PT DENIES PAIN AT THIS TIME. BRAXTON CATHETER INTACT AND IS DRAINING WELL TO CINDY URINE. RIGHT IJ TEMP DIALYSIS CATHETER INTACT, DRESSING IS CLEAN,DRY, INTACT. PT C/O FEELING "SHAKY" AT APPROX 0328, BLOOD GLUCOSE CHECKED= 57, PT PROVIDED WITH JUICE AND CRACKERS. REPEAT BLOOD GLUCOSE IS 84. NO OTHER CHANGES THROUGHOUT THIS SHIFT. CALL LIGHT WITHIN REACH. HOURLY ROUNDING DONE FOR PT SAFETY. FALL PRECAUTIONS IN PLACE.
--- NOTE | 2020-10-19 07:30 | NUR ---
PATIENT TO HD TAKEN BY HD NBURSE IN BED
[2020-10-19 12:00] VITALS: BP 125/92
--- NOTE | 2020-10-19 13:06 | NUR ---
POC UPDATE PER PT ROUNDS, PT CONT W/ONGOING DIALYSIS, HE CONT TO HAVE FLUID OVERLOAD.
[2020-10-19 16:00] VITALS: BP 139/73
[2020-10-19 20:00] VITALS: BP 135/65
[2020-10-20] VITALS: BP 148/78
[2020-10-20 04:00] VITALS: BP 123/72
[2020-10-20 04:10] LABS: CALCIUM 8.3 mg/dL (8.5-10.1); CREATININE 2.9 mg/dL (0.6-1.3); MAGNESIUM 2.4 mg/dL (1.8-2.4); POTASSIUM 4.1 mmol/L (3.5-5.1)
--- NOTE | 2020-10-20 05:58 | NUR ---
ASSUMED PT CARE AT APPROX 1930. PT IS NOT IN DISTRESS. PT IS TRACING AFIB ON THE TELEMETRY REGISTERED NURSE-RATE CONTROLLED. PT IS NOT IN DISTRESS, NO DESATURATIONS NOTED ON 3L OF O2/NC, PT IS ON CPAP AT HS. NO ACUTE CHANGES THIS SHIFT. CALL LIGHT WITHIN REACH. HOURLY ROUNDING DONE FOR PT SAFETY.
[2020-10-20 08:00] VITALS: BP 134/65
[2020-10-20 16:45] VITALS: BP 102/75
[2020-10-20 20:00] VITALS: BP 128/64
[2020-10-21 01:22] VITALS: BP 127/82
--- NOTE | 2020-10-21 04:33 | NUR ---
ASSUMED PT CARE AT APPROX 1930. PT IS AWAKE AND ORIENTED X4. PT IS TRACING AFIB ON THE CIRCULATING NURSE. PT DENIES CHEST PAIN/DISCOMFORT. BLE WOUND CARE DONE. NO DESATURATIONS NOTED ON 3L OF O2/NC, PT IS NOT IN RESPIRATORY DISTRESS. NO ACUTE CHANGES THIS SHIFT. CALL LIGHT WITHIN REACH. HOURLY ROUNDING DONE FOR SAFETY.
[2020-10-21 04:52] VITALS: BP 126/80
[2020-10-21 08:00] VITALS: BP 146/75
[2020-10-21 11:55] VITALS: BP 151/89
[2020-10-21 16:02] VITALS: BP 113/74
[2020-10-21 20:11] VITALS: BP 138/78
[2020-10-22] VITALS: BP 118/74
[2020-10-22 04:13] VITALS: BP 136/73
[2020-10-22 04:36] LABS: CALCIUM 8.6 mg/dL (8.5-10.1); MAGNESIUM 2.4 mg/dL (1.8-2.4); POTASSIUM 4.2 mmol/L (3.5-5.1)
[2020-10-22 04:43] LABS: ALBUMIN 2.5 g/dL (3.4-5.0); CALCIUM 8.8 mg/dL (8.5-10.1); PHOSPHORUS* 5.8 mg/dL (2.5-4.9); POTASSIUM 4.2 mmol/L (3.5-5.1)
--- NOTE | 2020-10-22 04:44 | NUR ---
PATIENT HAS REMAINED ALERT AND ORIENTED X 4 THROUGHOUT THE SHIFT. AFIB ON MONITOR WITH VITAL SIGNS STABLE ON 3L/MIN BY NASAL CANNULA OR BLEED IN WITH BIPAP WHEN SLEEPING. BILAT LE'S WITH CLEAN AND DRY DRESSINGS. MINAMAL OUTPUT BY BRAXTON CATHETER. FLUID RESTRICTION MAINTAINED. DIALYSIS PLANNED FOR THIS AM. CONTINUE TO MONITOR.
--- NOTE | 2020-10-22 07:15 | NUR ---
CHNAGE OF SHIFT REPORT GIVEN PATIENT SEEN AT BEDSIDE, IN RECLINER RESTING ASSUMED PATIENT CARE
[2020-10-22 08:00] VITALS: BP 135/77
--- NOTE | 2020-10-22 11:02 | NUR ---
CM INFORMED DURING PRIME ROUNDING OF THE PLAN OF ARE FOR THE PT. NEPHROLOGY INFORMS OF NEED TO ARRANGE OUTPATIENT HEMODIALSIS FOR PT AT PT'S CHOSEN FACILITY [facility] FOR A MORNING CHAIR TIME. PLAN FOR PT TO HAVE DIALYSIS CATH PLACED TOMORROW. CM FAXED OUTPATIENT DIALYSIS REFERRAL TO [facility] AND AM AWAITING A RETURN CALL TO DISCUSS ABILITY TO ACCEPT PT AT D/C. CM WILL NEED TO FAX DIALSIS CATH PLAEMENT INFO TO [facility] WHEN AVAILABLE. CM WILL REMAIN AVAILABLE TO ASSIST AND FOLLOW NEEDED. [facility] PHONE: [phone] FAX: [phone]
--- NOTE | 2020-10-22 15:41 | NUR ---
WOUND NURSE: PATIENT SEEN FOR FOLLOW UP ASSESSMENT TO BLE. LLE IS HEALED WITH INTACT SKIN. RIGHT LE REDUCED TO ONE OPEN LESION MEASURING 0.5 X 0.5 X 0.1 CM, PINK NONGRANULATING TISSUE IN THE WOUND BED. 1 TO 2 PLUS EDEMA IN LEG, BUT 3 PLUS EDEMA IN DORSAL FOOT. DRESSING APPLIED TO RLE. 2 LAYER TUBIGRIPS APPLIED TO LLE. PATIENT REMINDED ON IMPORTANCE IN ELEVATING BLE ABOVE HEART. PATIENT STATES HE UNDERSTANDS.
[2020-10-22 20:00] VITALS: BP 125/64
[2020-10-23] VITALS (7 sets, daily range): BP systolic 115–154; BP diastolic 58–78
[2020-10-23 06:02] LABS: CALCIUM 8.7 mg/dL (8.5-10.1); CREATININE 3.9 mg/dL (0.6-1.3); POTASSIUM 4.1 mmol/L (3.5-5.1)
[2020-10-23 06:51] LABS: ABSOLUTE EOSINOPHILS 0.1 thou/uL (0.0-0.7); ABSOLUTE LYMPHOCYTES 0.6 thou/uL (0.8-5.3); ABSOLUTE MONOCYTES 0.6 thou/uL (0.0-1.2); ABSOLUTE NEUTROPHILS 2.5 thou/uL (1.6-8.1); BASOPHILS 0.7 %; EOSINOPHILS 3.3 %; HEMATOCRIT 25.9 % (42.0-52.0); HEMOGLOBIN 8.7 gm/dL (14.0-18.0); LYMPHOCYTES 15.8 %; MCH 29.8 pg (26.0-34.0); MCHC 33.6 g/dL (28.0-37.0); MCV 88.8 fL (80.0-100.0); MONOCYTES 15.1 %; MPV 9.3 fl. (7.2-11.1); NUCLEATED RBCS 0 /100WBC; PLATELET COUNT* 108 thou/uL (150-400); POLYS 65.1 %; RBC 2.92 mil/uL (4.50-6.00); WBC 3.8 thou/uL (4.0-11.0)
--- NOTE | 2020-10-23 07:10 | NUR ---
CHANGE OF SHIFT REPORT GIVEN PATIENT SEEN AT BEDSIDE, IN BED ASLEEP ASSUMED PATIENT CARE
--- NOTE | 2020-10-23 07:26 | NUR ---
ASSUMED PT'S CARE @ 1900. ALERT AND ORIENTED. VSS ON 3L NC. WEARS 3L @ HOME PER PT. 4L VIA CPAP @ HS. PT SLEPT ON RECLINER. DENIES PAIN. FLUID RESTRICTION. NPO AFTER MN. AFIB ON MONITOR. ENCOURAGED TO CALL WHEN NEEDING ASSISTANCE. WILL CONTINUE TO MONITOR.
--- NOTE | 2020-10-23 11:29 | NUR ---
CM INFORMED DURING PRIME ROUNDING OF THE PLAN OF CARE FOR THE PT. PLAN FOR PT TO D/C HOME WITH HH PENDING ARRANGEMENT OF OUTPATIENT DIALYSIS CLINIC. CM SPOKE TO PT TO CONFIRM ABILITY TO ARRANGE TRANSPORTATION TO DIALYSIS. PT CONFIRMS THAT HE WANTS [employer] [facility] AND INFORMS THAT EITHER HIS SON OR HIS BROTHER WILL ASSIST WITH TRANSPORATION TO AND FROM DIALYSIS. CM CALLED [facility] AND THEY WILL RETURN CALL TO WHEN THEY ARE ABLE TO CONFIRM A CHAIR TIME WITH [facility] [email or web address] [place] [facility]. CM WILL REMAIN AVAILABLE TO ASSIST AND FOLLOW NEEDED. [facility] PHONE: [phone] FAX: [phone]
[2020-10-23 16:31] LABS: URINE BLOOD 3+ (Negative); URINE CLARITY CLEAR; URINE COLOR YELLOW; URINE GLUCOSE-RANDOM NEGATIVE (Negative); URINE KETONES TRACE (Negative); URINE LEUKOCYTES TRACE (Negative); URINE NITRITE NEGATIVE (Negative); URINE PROTEIN 3+ (Negative); URINE SPECIFIC GRAVITY >= 1.030 (1.005-1.030)
[2020-10-23 16:34] LABS: ICTOTEST (BILI CONFIRMATORY) Negative (Negative); URINE BILIRUBIN 1+ (Negative)
[2020-10-23 16:42] LABS: SQUAMOUS 0-3 Few /LPF (0-3)
[2020-10-23 16:43] LABS: BACTERIA >30 Many /HPF (None Seen); MUCUS None Seen strn/LPF (None Seen); URINE WBC 6-15 Few /HPF (0-5)
[2020-10-23 16:44] LABS: CRYSTALS None Seen /LPF (None Seen); FINE GRANULAR CASTS 0-3 Few /LPF (None Seen); HYALINE CASTS 4-10 Moderate /LPF (None Seen)
[2020-10-24 04:16] VITALS: BP 126/58
[2020-10-24 04:33] LABS: ABSOLUTE EOSINOPHILS 0.1 thou/uL (0.0-0.7); ABSOLUTE LYMPHOCYTES 0.6 thou/uL (0.8-5.3); ABSOLUTE MONOCYTES 0.6 thou/uL (0.0-1.2); BASOPHILS 0.6 %; EOSINOPHILS 2.7 %; HEMOGLOBIN 8.4 gm/dL (14.0-18.0); LYMPHOCYTES 13.2 %; MCH 29.8 pg (26.0-34.0); MCHC 33.5 g/dL (28.0-37.0); MONOCYTES 13.2 %; MPV 9.4 fl. (7.2-11.1); NUCLEATED RBCS 0 /100WBC; PLATELET COUNT* 107 thou/uL (150-400); POLYS 70.3 %; RBC 2.81 mil/uL (4.50-6.00); RDW-CV 16.2 % (10.5-14.5); WBC 4.3 thou/uL (4.0-11.0)
[2020-10-24 04:56] LABS: CALCIUM 9.1 mg/dL (8.5-10.1); CREATININE 4.5 mg/dL (0.6-1.3); POTASSIUM 4.3 mmol/L (3.5-5.1)
--- NOTE | 2020-10-24 08:17 | NUR ---
PATIENT HAS SLEPT WELL THROUGHOUT THE NIGHT. VSS ON 3L 02 VIA NASAL CANNULA. PATIENT ON CPAP AT HS. LUNGS DIMINISHED. ASSESSMENT CHARTED. RIGHT CHEST DIALYSIS CATHETER IN PLACE. BRAXTON TO DEPENDENT DRAINAGE WITH 90CC OF DARK YELLOW URINE OUTPUT. AFIB ON TELE MONITOR. TUBIGRIP TO LEFT LOWER EXTREMITY AND DRESSING TO RIGHT LOWER EXTREMITY IS C/D/I. IV IN RIGHT AC-SL. ORAL MEDICADTIONS GIVEN ORDERED AND CHARTED. PATIENT TAKEN TO DIALYSIS THIS AM AND MORNING BLOOD PRESSURE MEDICATION NOT GIVEN THIS AM D/T DIALYSIS. PATIENT INSTRUCTED TO USE CALL LIGHT WHEN NEEDING ASSISTANCE. HOURLY ROUNDS MADE. WILL CONTINUE WITH PLAN OF CARE AND NURSING TO MONITOR.
[2020-10-24 11:51] VITALS: BP 139/76
[2020-10-24] MEDS ORDERED: FLOMAX0.4 MG PO (12:33)
[2020-10-24] MEDS ORDERED: ISORDIL10 MG PO (12:33)
[2020-10-24] MEDS ORDERED: HYDRALAZINE 2525 MG PO (12:33)
[2020-10-24] MEDS ORDERED: LANTUS100 UNIT/M SUBQ (12:34)
[2020-10-24] MEDS ORDERED: ELIQUIS5 MG PO (12:36)
[2020-10-24 12:44] VITALS: BP 139/76
--- NOTE | 2020-10-24 12:51 | NUR ---
DC orders written. CM confirmed with [facility] BS that Pt is to begin outpt dialysis on a MWF schedule at 4pm, CM updated Pt and nurse. F[facility] TDC[facility] summary [facility]
[2020-10-24 13:08] LABS: COMPLEMENT-C4 36 mg/dL (12-38); IgA 261 mg/dL (61-437); IgG 1110 mg/dL (603-1613); IgM 24 mg/dL (20-172)
--- NOTE | 2020-10-24 17:08 | NUR ---
PT CURRENLTY UP RESTING IN BED SIDE RECLINER- DUPLEX TRIMMER IN PLACE ORDERED, TRACING A -FIB- DIALYSIS COMPLETED THIS SHIFT INDICATED WITH 4.5L REPORTED TO BE TAKE OFF- IV NOTED TO RIGHT INTACT AND SL- RIGHT TESSIO NOTED TO BE C/D/I- GOOD PO INTAKE NOTED THIS SHIFT WITH MEALS, BS MONITORED ORDERED, NO SSI INDICATED THIS SHIFT- 2+ BLE EDEMA NOTED WITH BLE LEG WRAPS IN PLACE ORDERED- D/C ORDERS NOTED THIS SHIFT, BUT PT SPOKE WITH PHYSICIAN IN REGUARDS TO SCROTUM SWELLING AND NOT BEING ABLE TO MOVE AROUND IN THAT CONDITION, D/C ON HOLD TO FURTHER EVAL DARREN- PT HERE TO ASSESS AND WORK WITH PT, BUT DESPITE EDUCATION GIVEN PER THIS NURSE AND PT ON HELPING WITH PAIN AND SWELLING, PT CONTINUED TO REFUSE PT- CALL LIGHT AND PERSONAL BELONGINGS WITH IN REACH- ALL NEEDS MET AT THIS TIME
[2020-10-24 17:18] VITALS: BP 133/77
[2020-10-24 20:06] VITALS: BP 129/66
[2020-10-25] VITALS (7 sets, daily range): BP systolic 119–147; BP diastolic 44–83
--- NOTE | 2020-10-25 07:03 | NUR ---
PT A&OX4, VSS ON 3L NC - CPAP WHILE SLEEPING, IV SALINE LOCKED, URINARY CATHETER IN PLACE, AFIB ON MONITOR, FLUID RESTRICTION MAINTAINED. PT SLEPT WELL, UP TO CHAIR AT APPROX 0600. WILL CONTINUE TO MONITOR.
[2020-10-25 10:07] LABS: ANA INTERPRETATION Negative (Negative)
--- NOTE | 2020-10-25 15:17 | NUR ---
CM INFORMED DURING PRIME ROUNDING OF THE PLAN OF CARE FOR THE PT. PLAN FOR PT TO HAVE RENAL BIOPSY TODAY AND HAVE DIALYSIS IN-HOUSE TOMORROW AND D/C AFTER. CM RECIEVED APPROVAL FOR PT TO HAVE DIALYSIS AT [facility] ([facility] @ 1600). CM PROVIDED PT A COPY OF THE DIALYSIS CHAIR TIME LETTER AND LEFT COPY ON THE CHART FOR PT'S SON WELL. CM RECIEVED CALL FROM PT'S DTR JOSE R REQUESTING INFO ABOUT TRANSPORTATION AND DIALYSIS. CM PROVIDED PT'S DTR REQUESTED INFO AND EXPLAINED THAT DIALYSIS DOES NOT ASSIST WITH TRANSPORT AND THAT PT WILL NEED FAMILY'S ASSITANCE WITH TRANSPORT TO AND FROM DIALYSIS. PT'S DTR CONFIRMED UNDERSTANDING AND INFORMS THAT HER BROTHER WILL ASSIST PT WILL TRANSPORTATION. CM TO REQUEST MED ASSIST ASSISTANCE TO COMPLETE MEDICAID ANTIONE. PT MAY NEED HH AT D/C. CM WILL NEED TO INFORM [facility] OF PT'S D/C AND FAX PT'S FLOW SHEETS AND D/C SUMMARY. PRIOR TO D/C. CM WILL REMAIN AVAILABLE TO ASSIST AND FOLLOW NEEDED. [facility] PHONE: [phone] FAX: [phone] [facility]
--- NOTE | 2020-10-25 20:21 | NUR ---
I ASSUMED CARE OF THE PATIENT AT 0700. HE IS ALERT AND ORIENTED X4 AND IS UP WITH SBA. BED IS IN THE LOW LOCKED POSITION AND CALL LIGHT IS IN REACH. HOURLY ROUNDING IS COMPLETED AND PATIENT NEEDS ARE MET. DR. Alvarez EXPLAINED A RENAL BIOPSY TO PATIENT AND HE AGREED TO STAY UNTIL TOMORROW. LEG WRAPS ARE C/D/I. DAUGHTER WAS UPDATED. BLOOD GLUCOSE WAS MONITORED. FLUID RESTRICTIONS WERE MONITORED. DAUGHTER SAYS THAT RECENTLY AND HER DAD IS 'TRYING TO FIND HIS WAY,' DEALING WITH ALL OF THIS INSURANCE STUFF. HAS SET UP DIALYSIS ON BUT NOW FAMILY IS ASKING ABOUT TRANSPORTATION FROM [facility] TO [facility]ANY. BRAXTON BALLOON WAS CHECKED AND BRAXTON WAS IRRIGATED WHEN PATIENT DIDN'T THINK IT WAS DRAINING CORRECTLY. WILL CONTINUE TO MONITOR.
[2020-10-26] VITALS: BP 114/67
[2020-10-26 04:00] VITALS: BP 135/67
[2020-10-26 04:51] LABS: ABSOLUTE EOSINOPHILS 0.1 thou/uL (0.0-0.7); ABSOLUTE LYMPHOCYTES 0.6 thou/uL (0.8-5.3); ABSOLUTE MONOCYTES 0.5 thou/uL (0.0-1.2); ABSOLUTE NEUTROPHILS 2.5 thou/uL (1.6-8.1); BASOPHILS 0.9 %; EOSINOPHILS 2.6 %; HEMATOCRIT 23.8 % (42.0-52.0); LYMPHOCYTES 15.6 %; MCH 29.9 pg (26.0-34.0); MCHC 33.6 g/dL (28.0-37.0); MPV 9.4 fl. (7.2-11.1); NUCLEATED RBCS 0 /100WBC; PLATELET COUNT* 98 thou/uL (150-400); POLYS 67.9 %; RBC 2.67 mil/uL (4.50-6.00); RDW-CV 16.3 % (10.5-14.5); WBC 3.7 thou/uL (4.0-11.0)
[2020-10-26 05:09] LABS: CALCIUM 8.6 mg/dL (8.5-10.1); CREATININE 5.1 mg/dL (0.6-1.3); POTASSIUM 4.2 mmol/L (3.5-5.1)
--- NOTE | 2020-10-26 07:01 | NUR ---
Alert and oriented x 4. He has edema to bilat LE's and they are wrapped tubigrips on LLE and kerlex and acewrap on RLE. He has goldsmith to DD and tea colored urine. He has been afib on the monitor. He has tessio cath to rt chest for hemodialysis. He is supposed to DC to home after dialysis today. He has Dressings to bilat LE'sand they are intact. O2 is at 3L n/c and he used cpap at night. Denies pain. He has slept well.
[2020-10-26 08:47] VITALS: BP 117/68
[2020-10-26 11:44] VITALS: BP 129/65
[2020-10-26 13:09] LABS: GLOMERULR BASEM MEMBRN AB 4 units (0-20)
--- NOTE | 2020-10-26 15:54 | NUR ---
PT ROUNDING POC: PT TO BE DIALYSIZED TODAY INPATIENT.
[2020-10-26 16:06] LABS: KAPPA FREE LIGHT CHAINS 111.1 mg/L (3.3-19.4); LAMBDA FREE LIGHT CHAINS 92.8 mg/L (5.7-26.3)
[2020-10-26 17:55] VITALS: BP 139/76
[2020-10-26 18:39] VITALS: BP 139/76
--- NOTE | 2020-10-26 19:46 | NUR ---
ASSUMED PT CARE AT 0730, PT AOX4, NO C/O PAIN OR SHORTNESS OF BREATH. PT WORKED W/ NEPHRO THIS MORNING ORDERS RECEIVED TO DC FOX, BRAXTON REMOVED AT THIS TIME. PT WENT UP FOR DIALYSIS AT APPROX 1300 AND CAME BACK TO FLOOR AT APPROX 1600. DC ORDERS RECEIVED. DC INSTRUCTIONS, CARE NOTES, SCRIPTS AND F/U APPTS GIVEN TO PT. PT REFUSED EDUCATION FROM BUSGIRL ABOUT RENAL DIET. IV AND LONG FILLER CIGAR ROLLER MACHINE REMOVED. PT DC'D BY WC W/ NURSING STAFF TO SON'S PERSONAL VEHICLE W/ ALL PAPERWORK AND PESONAL BELONGINGS AT APPROX 1828.
== END 2020-10-26 18:38 | disposition home or self-care (01) | DRG 177 ==
LOC: M.ERS 17:24 → M.TBA-ER 19:50 → M.2W 19:50
PROVIDERS: Internal Medicine; Internal Medicine Cardiovascular Disease; Internal Medicine Nephrology; Physician Assistant; ADMIT Family Medicine; ATTEND Family Medicine
PROC: 5A09357 Assistance with Respiratory Ventilation, Less than 24 Consecutive Hours, Continuous Positive Airway Pressure (ICD-10-PCS; principal; 2020-10-13)
PROC: 5A09357 Assistance with Respiratory Ventilation, Less than 24 Consecutive Hours, Continuous Positive Airway Pressure (ICD-10-PCS; 2020-10-15)
PROC: 5A09357 Assistance with Respiratory Ventilation, Less than 24 Consecutive Hours, Continuous Positive Airway Pressure (ICD-10-PCS; 2020-10-16)
PROC: 5A09357 Assistance with Respiratory Ventilation, Less than 24 Consecutive Hours, Continuous Positive Airway Pressure (ICD-10-PCS; 2020-10-17)
PROC: 5A1D70Z Performance of Urinary Filtration, Intermittent, Less than 6 Hours Per Day (ICD-10-PCS; 2020-10-18)
PROC: B5181ZA Fluoroscopy of Superior Vena Cava using Low Osmolar Contrast, Guidance (ICD-10-PCS; 2020-10-18)
PROC: 5A09357 Assistance with Respiratory Ventilation, Less than 24 Consecutive Hours, Continuous Positive Airway Pressure (ICD-10-PCS; 2020-10-18)
PROC: 02HV33Z Insertion of Infusion Device into Superior Vena Cava, Percutaneous Approach (ICD-10-PCS; 2020-10-18)
PROC: B548ZZA Ultrasonography of Superior Vena Cava, Guidance (ICD-10-PCS; 2020-10-18)
PROC: 5A1D70Z Performance of Urinary Filtration, Intermittent, Less than 6 Hours Per Day (ICD-10-PCS; 2020-10-19)
PROC: 5A1D70Z Performance of Urinary Filtration, Intermittent, Less than 6 Hours Per Day (ICD-10-PCS; 2020-10-20)
PROC: 5A09357 Assistance with Respiratory Ventilation, Less than 24 Consecutive Hours, Continuous Positive Airway Pressure (ICD-10-PCS; 2020-10-20)
PROC: 5A1D70Z Performance of Urinary Filtration, Intermittent, Less than 6 Hours Per Day (ICD-10-PCS; 2020-10-22)
PROC: 0JH63XZ Insertion of Tunneled Vascular Access Device into Chest Subcutaneous Tissue and Fascia, Percutaneous Approach (ICD-10-PCS; 2020-10-23)
PROC: 02HV33Z Insertion of Infusion Device into Superior Vena Cava, Percutaneous Approach (ICD-10-PCS; 2020-10-23)
PROC: B548ZZA Ultrasonography of Superior Vena Cava, Guidance (ICD-10-PCS; 2020-10-23)
PROC: 5A09357 Assistance with Respiratory Ventilation, Less than 24 Consecutive Hours, Continuous Positive Airway Pressure (ICD-10-PCS; 2020-10-23)
PROC: B5181ZA Fluoroscopy of Superior Vena Cava using Low Osmolar Contrast, Guidance (ICD-10-PCS; 2020-10-23)
PROC: 5A1D70Z Performance of Urinary Filtration, Intermittent, Less than 6 Hours Per Day (ICD-10-PCS; 2020-10-24)
PROC: 5A09357 Assistance with Respiratory Ventilation, Less than 24 Consecutive Hours, Continuous Positive Airway Pressure (ICD-10-PCS; 2020-10-25)
PROC: 0TB13ZX Excision of Left Kidney, Percutaneous Approach, Diagnostic (ICD-10-PCS; 2020-10-25)
PROC: 5A1D70Z Performance of Urinary Filtration, Intermittent, Less than 6 Hours Per Day (ICD-10-PCS; 2020-10-26)
PROC: 5A09357 Assistance with Respiratory Ventilation, Less than 24 Consecutive Hours, Continuous Positive Airway Pressure (ICD-10-PCS; 2020-10-26)
DX: J15.6 Pneumonia due to other Gram-negative bacteria (principal); I50.33 Acute on chronic diastolic (congestive) heart failure; E43 Unspecified severe protein-calorie malnutrition; I13.0 Hypertensive heart and chronic kidney disease with heart failure and stage 1 through stage 4 chronic kidney disease, or unspecified chronic kidney disease; N17.9 Acute kidney failure, unspecified; L03.116 Cellulitis of left lower limb; L03.115 Cellulitis of right lower limb; I48.20 Chronic atrial fibrillation, unspecified; J96.10 Chronic respiratory failure, unspecified whether with hypoxia or hypercapnia; J44.0 Chronic obstructive pulmonary disease with (acute) lower respiratory infection; Z20.822 Contact with and (suspected) exposure to COVID-19; E78.00 Pure hypercholesterolemia, unspecified; M10.9 Gout, unspecified; K21.9 Gastro-esophageal reflux disease without esophagitis; F32.9 Major depressive disorder, single episode, unspecified; Z77.22 Contact with and (suspected) exposure to environmental tobacco smoke (acute) (chronic); N18.32 Chronic kidney disease, stage 3b; E87.5 Hyperkalemia; T46.0X5A Adverse effect of cardiac-stimulant glycosides and drugs of similar action, initial encounter; I87.8 Other specified disorders of veins; E11.22 Type 2 diabetes mellitus with diabetic chronic kidney disease; R33.9 Retention of urine, unspecified; E66.01 Morbid (severe) obesity due to excess calories; S81.801A Unspecified open wound, right lower leg, initial encounter; R31.0 Gross hematuria; E78.5 Hyperlipidemia, unspecified; Z89.021 Acquired absence of right finger(s); Z88.8 Allergy status to other drugs, medicaments and biological substances; Z82.49 Family history of ischemic heart disease and other diseases of the circulatory system; Y92.89 Other specified places as the place of occurrence of the external cause; Z68.36 Body mass index [BMI] 36.0-36.9, adult; X58.XXXA Exposure to other specified factors, initial encounter; Y93.89 Activity, other specified; Y99.8 Other external cause status; Z23 Encounter for immunization

== ENCOUNTER 2020-10-28 16:18 | Emergency (ER) | payer OTHER ==
[~2020-10-28] VITALS: Ht 175.3 cm; Wt 145.2 kg
[~2020-10-28 16:18] MED LIST changes: +DILTIAZEM ER180 M2 PO; +FLOMAX0.4 MG PO; +HYDRALAZINE 2525 MG PO; +ISORDIL10 MG PO; +LANTUS100 UNIT/M SUBQ
[2020-10-28 17:18] VITALS: BP 143/83
== END 2020-10-28 17:25 | disposition home or self-care (01) ==
LOC: M.ERS 16:18
DX: T82.43XA Leakage of vascular dialysis catheter, initial encounter (principal); I48.91 Unspecified atrial fibrillation; G47.30 Sleep apnea, unspecified; E78.00 Pure hypercholesterolemia, unspecified; J44.9 Chronic obstructive pulmonary disease, unspecified; K21.9 Gastro-esophageal reflux disease without esophagitis; I13.0 Hypertensive heart and chronic kidney disease with heart failure and stage 1 through stage 4 chronic kidney disease, or unspecified chronic kidney disease; E11.22 Type 2 diabetes mellitus with diabetic chronic kidney disease; N18.2 Chronic kidney disease, stage 2 (mild); I50.32 Chronic diastolic (congestive) heart failure; Z79.4 Long term (current) use of insulin; Z77.22 Contact with and (suspected) exposure to environmental tobacco smoke (acute) (chronic); Y83.8 Other surgical procedures as the cause of abnormal reaction of the patient, or of later complication, without mention of misadventure at the time of the procedure; Y92.89 Other specified places as the place of occurrence of the external cause

== ENCOUNTER 2020-10-29 08:04 | Emergency (ER) | payer OTHER ==
[~2020-10-29] VITALS: Ht 175.3 cm; Wt 145.2 kg
[2020-10-29 08:17] VITALS: BP 90/48
[2020-10-29 08:51] LABS: ABSOLUTE BASOPHILS 0.1 thou/uL (0.0-0.2); ABSOLUTE EOSINOPHILS 0.3 thou/uL (0.0-0.7); ABSOLUTE LYMPHOCYTES 0.7 thou/uL (0.8-5.3); ABSOLUTE MONOCYTES 1.1 thou/uL (0.0-1.2); ABSOLUTE NEUTROPHILS 8.4 thou/uL (1.6-8.1); EOSINOPHILS 2.7 %; HEMATOCRIT 20.1 % (42.0-52.0); LYMPHOCYTES 6.7 %; MCH 29.6 pg (26.0-34.0); MCHC 33.2 g/dL (28.0-37.0); MCV 89.2 fL (80.0-100.0); MONOCYTES 10.7 %; MPV 9.1 fl. (7.2-11.1); NUCLEATED RBCS 0 /100WBC; PLATELET COUNT* 174 thou/uL (150-400); POLYS 78.9 %; RBC 2.25 mil/uL (4.50-6.00); WBC 10.7 thou/uL (4.0-11.0)
[2020-10-29 08:53] LABS: HEMOGLOBIN 6.7 gm/dL (14.0-18.0)
[2020-10-29 08:57] LABS: CALCIUM 8.3 mg/dL (8.5-10.1); CREATININE 5.6 mg/dL (0.6-1.3); POTASSIUM 5.3 mmol/L (3.5-5.1)
[2020-10-29 09:01] LABS: ALBUMIN 2.5 g/dL (3.4-5.0); TOTAL BILIRUBIN 0.5 mg/dL (<0.1-1.0); TOTAL PROTEIN 6.1 g/dL (6.4-8.2)
--- NOTE | 2020-10-29 09:55 | NUR ---
CHEPE BARAJAS'S PHONE NUMBER IS [phone]
[2020-10-29 14:10] VITALS: BP 95/58
--- NOTE | 2020-10-30 16:05 | EKG ---
[place] [address] ELECTROCARDIOGRAM REPORT Name: KARL LAO Room: [facility] ([place], [place])#: [id number] Admission: 10/29/20 Attend Phys: Discharge: 10/29/20 Date of : 56 Date of Service: 10/29/20 0854 Report #: [id number] THIS REPORT FOR: //name// [facility] ED Test Date: 2020-10-29 Test Time: 08:54:14 Pat Name: KARL LAO Department: Room: [facility] Gender: M Document Processing Specialist: MS : [id number] Requested By: Ector Mcintyre Order Number: [id number] MD: Bry Mccall Measurements Intervals [place] Rate: 99 P: [place]: QRS: 147 QRSD: 110 T: 47 QT: 392 QTc: 504 Interpretive Statements Atrial fibrillation Borderline low voltage, extremity leads Prolonged QT interval Baseline wander in lead(s) V2,V4 Compared to ECG 10/12/2020 17:43:23 Prolonged QT interval now present Incomplete right bundle-branch block persists Electronically Signed On 10-30-2020 16:05:35 GRAIN WAFER MACHINE OPERATOR by Bry Mccall [email or web address] <ELECTRONICALLY SIGNED> By: Bry Mccall MD, FACC 10/30/20 1605 0854 0854 Bry Mccall MD, FAC /EPI
== END 2020-10-29 14:15 | disposition short-term general hospital (02) ==
LOC: M.ERS 08:04 → M.TBA-ER 10:44 → M.ERS 10:44
PROVIDERS: Emergency Medicine Emergency Medical Services
DX: D64.9 Anemia, unspecified (principal); Z20.828 Contact with and (suspected) exposure to other viral communicable diseases; I13.0 Hypertensive heart and chronic kidney disease with heart failure and stage 1 through stage 4 chronic kidney disease, or unspecified chronic kidney disease; E11.22 Type 2 diabetes mellitus with diabetic chronic kidney disease; N18.2 Chronic kidney disease, stage 2 (mild); I50.32 Chronic diastolic (congestive) heart failure; J44.9 Chronic obstructive pulmonary disease, unspecified; K21.9 Gastro-esophageal reflux disease without esophagitis; E78.00 Pure hypercholesterolemia, unspecified; G47.30 Sleep apnea, unspecified; Z79.4 Long term (current) use of insulin; Z77.22 Contact with and (suspected) exposure to environmental tobacco smoke (acute) (chronic); Z88.8 Allergy status to other drugs, medicaments and biological substances